=== PATIENT | female | born 2000 | race Hispanic/Latino ===

== ENCOUNTER 2020-08-26 07:36 | Emergency (ER) | payer BC ==
[2020-08-26 08:12] LABS: Absolute Lymphocytes (CBC) 1.3 K/uL (0.7-4.9); Basophils % 0.4 % (0-1.3); Hematocrit 43.6 % (36.0-45.0); Lymphocytes % 14.1 % (15.3-44.8); MPV 8.8 fL (7.6-11.3); RBC Red Blood Cell Count 5.26 M/uL (3.86-4.86)
[2020-08-26] MEDS ORDERED: ONDANSETRON 4 MG/2 ML VIAL ONE ×2 (08:12→09:03)
[2020-08-26] MEDS ORDERED: NA CHLORIDE 0.9% 1,000 ML ONE (08:13)
[2020-08-26] MEDS ORDERED: FAMOTIDINE 20 MG/2 ML VIAL IV ONE (08:13)
[2020-08-26 08:21] LABS: Albumin 4.7 g/dL (3.4-5.0); Bilirubin Direct 0.2 mg/dL (0-0.2); Bilirubin Total 0.7 mg/dL (0.2-1.0); Potassium 3.4 mmol/L (3.5-5.1); Protein, Total 8.6 g/dL (6.4-8.2)
--- NOTE | 2020-08-26 09:33 | ER ---
Nurse's Notes [facility] Name: Vicenta Tomlin Age: 20 yrs Sex: Female : 2000 Arrival Date: 08/26/2020 Time: 07:37 Bed 20 Private MD: Diagnosis: Nausea and vomiting;Alcohol abuse Presentation: 08/26 07:41 Chief complaint: Patient states: drinking heavily last night, has been vomiting and iw having abd pain. Coronavirus screen: At this time, the client does not indicate any symptoms associated with coronavirus-19. Ebola Screen: Patient negative for fever greater than or equal to 101.5 degrees Fahrenheit, and additional compatible Ebola Virus Disease symptoms Patient denies exposure to infectious person. Patient denies travel to an Ebola-affected area in the 21 days before illness onset. No symptoms or risks identified at this time. Initial Sepsis Screen: Does the patient meet any 2 criteria? No. Patient's initial sepsis screen is negative. Does the patient have a suspected source of infection? No. Patient's initial sepsis screen is negative. Risk Assessment: Do you want to hurt yourself or someone else? Patient reports no desire to harm self or others. Onset of symptoms was August 26, 2020. 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 - Social history:: Smoking status: Patient denies any tobacco usage or history of. Screenin:20 Abuse screen: Denies threats or abuse. Denies injuries from another. Nutritional zb screening: No deficits noted. Tuberculosis screening: No symptoms or risk factors identified. Possible symptoms: None Risk factors: None. Fall Risk None identified. No fall in past 12 months (0 pts). No secondary diagnosis (0 pts). IV access (20 points). Ambulatory Aid- None/Bed Rest/Nurse Assist (0 pts). Gait- Normal/Bed Rest/Wheelchair (0 pts) Mental Status- Oriented to own ability (0 pts). Total Espinoza Fall Scale indicates No Risk (0-24 pts). Assessment: 08:09 General: Appears comfortable, well groomed, Behavior is calm, cooperative, appropriate zb for age, anxious, Denies fever, fatigue, chills. General: pt states she was drinking last night everclear and gatorade and started to experience severe nausea and vomiting around 3 AM. she called poison control which suggested she come to the ED. . Pain: Complains of pain in abdomen Pain began 3 hours ago. Neuro: Level of Consciousness is awake, alert, obeys commands, Oriented to person, place, time, situation. Cardiovascular: No deficits noted. Capillary refill < 3 seconds in bilateral fingers. Respiratory: Airway is patent. GI: Abdomen is flat, Reports cramping, nausea, vomiting. : No signs and/or symptoms were reported regarding the genitourinary system. EENT: No deficits noted. No signs and/or symptoms were reported regarding the EENT system. Derm: Skin is intact, is healthy with good turgor. Musculoskeletal: No deficits noted. No signs and/or symptoms reported regarding the musculoskeletal system. 09:00 Reassessment: Patient appears in no apparent distress at this time. Patient and/or zb family updated on plan of care and expected duration. Pain level reassessed. Patient is alert, oriented x 3, equal unlabored respirations, skin warm/dry/pink. pt c/o of nausea. Patient denies pain at this time. Vital Signs: 07:41 BP 133 / 73; Pulse 108; Resp 18 S; Temp 97.7; Pulse Ox 100% on R/A; Weight 74.84 kg; iw Height 5 ft. 6 in. (167.64 cm); Pain 8/10; 07:41 BP 133 / 73; iw 09:10 BP 115 / 77; Pulse 100; Resp 18; Pulse Ox 100% on R/A; zb 07:41 Body Mass Index 26.63 (74.84 kg, 167.64 cm) iw ED Course: 07:37 Patient arrived in ED. as 07:42 Triage completed. iw 07:42 Arm band placed on. iw 07:44 Solomon Arvizu MD is Attending Physician. kdr 07:54 Snehal Goodwin RN is Primary Nurse. ph 08:00 Initial lab(s) drawn, by me, sent to lab. Inserted saline lock: 20 gauge in right iw antecubital area, using aseptic technique. 08:20 No provider procedures requiring assistance completed. zb 08:21 Patient has correct armband on for positive identification. Placed in gown. Bed in low zb position. Call light in reach. Side rails up X 1. Adult w/ patient. Door closed. Noise minimized. Warm blanket given. Head of bed elevated. 10:13 IV discontinued, intact, bleeding controlled, No redness/swelling at site. Pressure zb dressing applied. Administered Medications: 08:19 Drug: NS 0.9% 1000 ml Route: IV; Rate: 1 bolus; Site: right antecubital; zb 08:55 Follow up: Response: No adverse reaction; IV Intake: 1000ml zb 09:30 Follow up: Response: No adverse reaction; IV Intake: 1000ml zb 08:19 Drug: Zofran (Ondansetron) 4 mg Route: IVP; Site: right antecubital; zb 08:55 Follow up: Response: No adverse reaction zb 08:19 Drug: Pepcid 20 mg Route: IVP; Site: right antecubital; zb 08:54 Follow up: Response: No adverse reaction; Pain is decreased zb 08:54 Drug: Zofran (Ondansetron) 4 mg Route: IVP; Site: right antecubital; zb 09:45 Follow up: Response: No adverse reaction zb Intake: 08:55 IV: 1000ml; Total: 1000ml. zb 09:30 IV: 1000ml; Total: 2000ml. zb Outcome: 09:31 Discharge ordered by . kdr 10:12 Discharged to home ambulatory, with significant other. zb 10:12 Condition: good 10:12 Discharge instructions given to patient, significant other, Instructed on discharge instructions, follow up and referral plans. medication usage, Demonstrated understanding of instructions, follow-up care, medications, Prescriptions given X 1. 10:13 Patient left the ED. zb Signatures: Solomon Arvizu MD MD kdr Martinez, Amelia as Williams, Irene, RN RN iw Snehal Goodwin RN RN ph Brown, Zipporah, RN RN zb Corrections: (The following items were deleted from the chart) 07:43 07:41 BP 13 / ???; iw iw
--- NOTE | 2020-08-26 09:33 | EDPHYS ---
Physician Documentation [facility] Name: Vicenta Tomlin Age: 20 yrs Sex: Female : 2000 Arrival Date: 08/26/2020 Time: 07:37 Bed 20 Private MD: ED Physician Solomon Arvizu HPI: 08/26 08:02 This 20 yrs old Female presents to ER via Ambulatory with complaints of kdr Vomiting, Abdominal Pain. 08:02 The patient presents to the emergency department with nausea, vomiting, Onset: The kdr symptoms/episode began/occurred suddenly, this morning, at 03:00. Possible causes: Drinking Everclear and Gatoraide last night until about 2:00 AM and then she started to vomit at about 3:00 AM. The symptoms are aggravated by nothing. The symptoms are alleviated by nothing. Associated signs and symptoms: Pertinent positives: abdominal pain, vomiting. Severity of symptoms: At their worst the symptoms were mild just prior to arrival, in the emergency department the symptoms are unchanged. The patient has not experienced similar symptoms in the past. The patient has not recently seen a physician. 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 - Social history:: Smoking status: Patient denies any tobacco usage or history of. ROS: 08:02 Constitutional: Negative for fever, chills, and weight loss, Eyes: Negative for injury, kdr pain, redness, and discharge, Neck: Negative for injury, pain, and swelling, Cardiovascular: Negative for chest pain, palpitations, and edema, Respiratory: Negative for shortness of breath, cough, wheezing, and pleuritic chest pain, Back: Negative for injury and pain, : Negative for injury, bleeding, discharge, and swelling, MS/Extremity: Negative for injury and deformity, Skin: Negative for injury, rash, and discoloration, Neuro: Negative for headache, weakness, numbness, tingling, and seizure activity. Psych: Negative for depression, anxiety, suicide ideation, homicidal ideation, and hallucinations, Allergy/Immunology: Negative for hives, rash, and allergies, Endocrine: Negative for neck swelling, polydipsia, polyuria, polyphagia, and marked weight changes, Hematologic/Lymphatic: Negative for swollen nodes, abnormal bleeding, and unusual bruising. 08:02 Abdomen/GI: Positive for abdominal pain, nausea and vomiting, Negative for diarrhea, constipation, abdominal distension, anorexia, dysphagia, hematemesis, black/tarry stool, rectal pain, rectal bleeding, bowel incontinence. Exam: 08:02 Constitutional: This is a well developed, well nourished patient who is awake, alert, kdr and in no acute distress. Head/Face: Normocephalic, atraumatic. Eyes: Pupils equal round and reactive to light, extra-ocular motions intact. Lids and lashes normal. Conjunctiva and sclera are non-icteric and not injected. Cornea within normal limits. Periorbital areas with no swelling, redness, or edema. Neck: Trachea midline, no thyromegaly or masses palpated, and no cervical lymphadenopathy. Supple, full range of motion without nuchal rigidity, or vertebral point tenderness. No Meningismus. Chest/axilla: Normal chest wall appearance and motion. Nontender with no deformity. No lesions are appreciated. Cardiovascular: Regular rate and rhythm with a normal S1 and S2. No gallops, murmurs, or rubs. Normal PMI, no JVD. No pulse deficits. Respiratory: Lungs have equal breath sounds bilaterally, clear to auscultation and percussion. No rales, rhonchi or wheezes noted. No increased work of breathing, no retractions or nasal flaring. Back: No spinal tenderness. No costovertebral tenderness. Full range of motion. Skin: Warm, dry with normal turgor. Normal color with no rashes, no lesions, and no evidence of cellulitis. MS/ Extremity: Pulses equal, no cyanosis. Neurovascular intact. Full, normal range of motion. Neuro: Awake and alert, GCS 15, oriented to person, place, time, and situation. Cranial nerves II-XII grossly intact. Motor strength 5/5 in all extremities. Sensory grossly intact. Cerebellar exam normal. Normal gait. Psych: Awake, alert, with orientation to person, place and time. Behavior, mood, and affect are within normal limits. 08:02 Abdomen/GI: Inspection: abdomen appears normal, Bowel sounds: normal, Palpation: soft, mild abdominal tenderness, in the epigastric area, right upper quadrant and left upper quadrant. Vital Signs: 07:41 BP 133 / 73; Pulse 108; Resp 18 S; Temp 97.7; Pulse Ox 100% on R/A; Weight 74.84 kg; iw Height 5 ft. 6 in. (167.64 cm); Pain 8/10; 07:41 BP 133 / 73; iw 09:10 BP 115 / 77; Pulse 100; Resp 18; Pulse Ox 100% on R/A; zb 07:41 Body Mass Index 26.63 (74.84 kg, 167.64 cm) iw MDM: 08:02 Data reviewed: vital signs, nurses notes, lab test result(s). Counseling: I had a kdr detailed discussion with the patient and/or guardian regarding: the historical points, exam findings, and any diagnostic results supporting the discharge/admit diagnosis, lab results, radiology results. 09:31 Patient medically screened. kdr 08/26 07:45 Order name: Basic Metabolic Panel; Complete Time: 08:51 kdr 08/26 07:45 Order name: CBC with Diff; Complete Time: 08:51 kdr 08/26 07:45 Order name: Hepatic Function; Complete Time: 08:51 kdr 08/26 07:45 Order name: Lipase; Complete Time: 08:51 kdr 08/26 08:09 Order name: ETOH Level; Complete Time: 08:51 kdr 08/26 07:45 Order name: IV Saline Lock; Complete Time: 07:56 kdr 08/26 07:45 Order name: Labs collected and sent; Complete Time: 07:56 kdr Administered Medications: 08:19 Drug: NS 0.9% 1000 ml Route: IV; Rate: 1 bolus; Site: right antecubital; zb 08:55 Follow up: Response: No adverse reaction; IV Intake: 1000ml zb 09:30 Follow up: Response: No adverse reaction; IV Intake: 1000ml zb 08:19 Drug: Zofran (Ondansetron) 4 mg Route: IVP; Site: right antecubital; zb 08:55 Follow up: Response: No adverse reaction zb 08:19 Drug: Pepcid 20 mg Route: IVP; Site: right antecubital; zb 08:54 Follow up: Response: No adverse reaction; Pain is decreased zb 08:54 Drug: Zofran (Ondansetron) 4 mg Route: IVP; Site: right antecubital; zb 09:45 Follow up: Response: No adverse reaction zb Disposition: 08/26/20 09:31 Discharged to Home. Impression: Nausea and vomiting, Alcohol abuse. - Condition is Stable. - Discharge Instructions: Nausea and Vomiting, Adult, [id number]. - Prescriptions for promethazine 25 mg Oral Tablet - take 1 tablet by ORAL route every 6 hours As needed; 20 tablet. - Medication Reconciliation Form, Thank You Letter form. - Follow up: Private Physician; When: 2 - 3 days; Reason: If symptoms return, Further diagnostic work-up, Recheck today's complaints, Continuance of care, Re-evaluation by your physician. - Problem is new. - Symptoms have improved. Signatures: Dispatcher [employer] EDMS Solomon Arvizu MD MD kdr Ana Cristina Garrido RN RN iw Garima Strange RN RN zb Corrections: (The following items were deleted from the chart) 10:13 09:31 08/26/2020 09:31 Discharged to Home. Impression: Nausea and vomiting; Alcohol zb abuse. Condition is Stable. Forms are Medication Reconciliation Form, Thank You Letter, Antibiotic Education, Prescription Opioid Use. Follow up: Private Physician; When: 2 - 3 days; Reason: If symptoms return, Further diagnostic work-up, Recheck today's complaints, Continuance of care, Re-evaluation by your physician. Problem is new. Symptoms have improved. kdr
[2020-08-26 10:25] VITALS: TEMP 97.7; O2SAT 100
[2020-08-26 10:26] VITALS: BP 115/77
== END 2020-08-26 10:13 | disposition home or self-care (01) ==
LOC: ER 07:36
DX: F10.10 Alcohol abuse, uncomplicated (principal)
CPT/HCPCS: 85025; 80048; 36415; 80320; 80076; 83690; 96375; 96374; 99284; J7030; J2405 ×2

== ENCOUNTER 2021-05-19 15:23 | Emergency (ER) | payer OTHER ==
--- OUTSIDE RECORDS SUMMARY | 2021-05-19 15:25 | XMS REPORT | Continuity of Care Document ---
:2000 Author Organization [facility] t Address [address] [place] [address] Care Team Providers Name Role Phone Debi Cabral Attending Clinician Faculty, Rmchp Mfm Attending Clinician Unavailable Problems This patient has no known problems. Allergies, Adverse Reactions, Alerts This patient has no known allergies or adverse reactions. Medications This patient has no known medications. Procedures This patient has no known procedures. Encounters Start End Encounter Admission Attending Care Care Encounter Source Date/Time Date/Time Type Type Clinicians Facility Department ID 2021-05-08 2021-05-08 Routine Te[facility] [id number] 13:22:34 14:01:37 Kristal C MEDICAL SERVICES MANAGER [id number] Visit [facility]IONAL [id number] MATERNAL [id number] & CHILD 107 [facility] 2021-05-08 2021-05-08 Refill ROD Lo [id number] 00:00:00 00:00:00 Kristal C MEDICAL SERVICES MANAGER [id number] REGIONAL [id number] MATERNAL [id number] & CHILD 107 [facility] 2021-04-24 2021-04-24 Routine Teresita [facility] [id number] 12:46:09 13:31:30 Kristal C MEDICAL SERVICES MANAGER [id number] Visit REGIONAL [id number] MATERNAL [id number] & CHILD 107 [facility] 2021-04-22 2021-04-22 Routine [facility] [id number] 14:17:33 15:26:46 Ang Rmchp MEDICAL SERVICES MANAGER [id number] Visit [facility] [id number] MATERNAL [id number] & CHILD 107 [facility] 2021-04-15 2021-04-15 Telephone Teresita [facility] [id number] 00:00:00 00:00:00 Kristal C MEDICAL SERVICES MANAGER [id number] REGIONAL [id number] MATERNAL [id number] & CHILD 107 [facility] Results This patient has no known results.
--- NOTE | 2021-05-21 16:36 | EDPHYS ---
Physician Documentation [facility] Name: Vicenta Tomlin Age: 20 yrs Sex: Female : 2000 Arrival Date: 05/19/2021 Time: 15:25 Bed Waiting Private MD: Nikolay Rutherford ED Physician Montse Pulido HPI: 05/19 16:34 This 20 yrs old Female presents to ER via Ambulatory with complaints of Finger kb swelling/ring stuck. 16:34 Patient states she has been swelling lately due to (patient is 39 weeks kb ). States woke up with swelling to her hands and is unable to remove ring from right ring finger. States she tried lotions soaps oils with no success. Onset: The symptoms/episode began/occurred this morning. Severity of symptoms: At their worst the symptoms were moderate in the emergency department the symptoms are unchanged. The patient has not experienced similar symptoms in the past. The patient has not recently seen a physician. Historical: - Allergies: 15:40 No Known Allergies; ss - Immunization history:: Adult Immunizations up to date. - Social history:: Smoking status: Patient denies any tobacco usage or history of. ROS: 16:34 Constitutional: Negative for fever, chills, and weight loss. kb 16:34 Skin: Positive for ring stuck on finger. 16:34 All other systems are negative. Exam: 16:32 Constitutional: This is a well developed, well nourished patient who is awake, alert, kb and in no acute distress. Head/Face: Normocephalic, atraumatic. ENT: Moist Mucous membranes Respiratory: Respirations even and unlabored. No increased work of breathing, no retractions or nasal flaring. MS/ Extremity: Pulses equal, no cyanosis. Neurovascular intact. Full, normal range of motion. Neuro: Awake and alert, GCS 15, oriented to person, place, time, and situation. Moves all extremities. Normal gait. Psych: Awake, alert, with orientation to person, place and time. Behavior, mood, and affect are within normal limits. 16:32 Skin: ring stuck on right 4th digit due to swelling. Vital Signs: 15:38 Resp 16; Weight 90.72 kg; Height 5 ft. 5 in. (165.10 cm); Pain 0/10; ss 15:41 BP 110 / 71; Pulse 91; Temp 98.1(TE); Pulse Ox 98% on R/A; ss 15:38 Body Mass Index 33.28 (90.72 kg, 165.10 cm) ss Procedures: 16:32 Ring removed from right 4th digit with ring cutter. Pt tolerated well. kb MDM: 15:51 Patient medically screened. kb 16:32 Data reviewed: vital signs, nurses notes. Data interpreted: Pulse oximetry: on room air kb is 98 %. Interpretation: normal. Counseling: I had a detailed discussion with the patient and/or guardian regarding: the historical points, exam findings, and any diagnostic results supporting the discharge/admit diagnosis, the need for outpatient follow up, a family practitioner, to return to the emergency department if symptoms worsen or persist or if there are any questions or concerns that arise at home. Administered Medications: No medications were administered Disposition: 17:14 Co-signature as Attending Physician, Montse Pulido MD. ma2 Disposition Summary: 05/19/21 15:53 Discharge Ordered Location: Home kb Condition: Stable kb Diagnosis - Ring or other jewelry causing external constriction, initial encounter kb Forms: - Medication Reconciliation Form kb - Thank You Letter kb - Antibiotic Education kb - Prescription Opioid Use kb Signatures: Jess Ewing FNP-C FNP-Ckb Smirch, Shelby, LOS RN Montse Shipley MD MD ma2
--- NOTE | 2021-05-21 16:36 | ER ---
Nurse's Notes [facility] Name: Vicenta Tomlin Age: 20 yrs Sex: Female : 2000 Arrival Date: 05/19/2021 Time: 15:25 Bed Waiting Private MD: Nikolay Rutherford Diagnosis: Ring or other jewelry causing external constriction, initial encounter Presentation: 05/19 15:38 Chief complaint: Patient states: Unable to get ring off of finger since this morning. ss Pt reports she is 8 months and believes it's because she is . Coronavirus screen: Client denies travel out of the [place] in the last 14 days. Ebola Screen: Patient denies exposure to infectious person. Patient denies travel to an Ebola-affected area in the 21 days before illness onset. Initial Sepsis Screen: Does the patient meet any 2 criteria? No. Patient's initial sepsis screen is negative. Does the patient have a suspected source of infection? No. Patient's initial sepsis screen is negative. Risk Assessment: Do you want to hurt yourself or someone else? Patient reports no desire to harm self or others. Onset of symptoms was May 19, 2021. 15:38 Method Of Arrival: Ambulatory ss 15:38 Acuity: HUGO 5 ss Historical: - Allergies: 15:40 No Known Allergies; ss - Immunization history:: Adult Immunizations up to date. - Social history:: Smoking status: Patient denies any tobacco usage or history of. Screenin:40 Abuse screen: Denies threats or abuse. Denies injuries from another. Nutritional ss screening: No deficits noted. Tuberculosis screening: Never had TB. Fall Risk None identified. Assessment: 15:41 General: Appears in no apparent distress. comfortable, Behavior is calm, cooperative. ss Pain: Denies pain. Neuro: Level of Consciousness is awake, alert, obeys commands, Oriented to person, place, time, situation. Cardiovascular: Capillary refill < 3 seconds is brisk in bilateral fingers. Respiratory: Airway is patent Respiratory effort is even, unlabored, Respiratory pattern is regular, symmetrical. Derm: Skin is intact, is healthy with good turgor, Skin is dry, Skin is pink, warm \T\ dry. normal. Musculoskeletal: Swelling present in palmar aspect of proximal phalanx of left ring finger. Vital Signs: 15:38 Resp 16; Weight 90.72 kg; Height 5 ft. 5 in. (165.10 cm); Pain 0/10; ss 15:41 BP 110 / 71; Pulse 91; Temp 98.1(TE); Pulse Ox 98% on R/A; ss 15:38 Body Mass Index 33.28 (90.72 kg, 165.10 cm) ED Course: 15:25 Patient arrived in ED. am2 15:25 Nikolay Rutherford MD is Private Physician. am2 15:40 Triage completed. ss 15:40 Arm band placed on right wrist. ss 15:40 Patient has correct armband on for positive identification. ss 15:51 Jess Ewing FNP-C [facility]. kb 15:51 Montse Pulido MD is Attending Physician. kb 16:14 No provider procedures requiring assistance completed. Patient did not have IV access ss during this emergency room visit. Removal of Removed ring from left ring finger. Removed ring with ring cutter Patient tolerated well. Administered Medications: No medications were administered Outcome: 15:53 Discharge ordered by . kb 16:14 Discharged to home ambulatory. ss 16:14 Condition: good 16:14 Discharge instructions given to patient, Instructed on discharge instructions, follow up and referral plans. Demonstrated understanding of instructions, follow-up care. 16:15 Patient left the ED. ss Signatures: Jess Ewing FNP-C FNP-Ckb Smirch, Shelby, LOS RN Haleigh Simmons am2
[2021-05-21 18:32] VITALS: BP 110/71; TEMP 98.1; O2SAT 98
== END 2021-05-19 16:15 | disposition home or self-care (01) ==
LOC: ER 15:23
DX: O26.893 Other specified pregnancy related conditions, third trimester (principal); W49.04XA Ring or other jewelry causing external constriction, initial encounter; Z3A.39 39 weeks gestation of pregnancy
CPT/HCPCS: 99283

== ENCOUNTER 2023-04-30 11:29 | Emergency (ER) | payer OTHER ==
--- OUTSIDE RECORDS SUMMARY | 2023-04-30 11:33 | XMS REPORT | Continuity of Care Document ---
:2000 Author Organization [facility] t Address [address] [place] [address] Care Team Providers Name Role Phone ELISA MONTEZ Primary Care Physician Unavailable ROWENA Attending Clinician Unavailable JONNIE PERKINS Attending Clinician Unavailable Teresita WHPKristal Attending Clinician [phone] KRISTAL LO Attending Clinician Unavailable Ashanti Matthews MD Attending Clinician Patria Matthews MD Attending Clinician Alix Rahman MD Attending Clinician Lab, [facility] Attending Clinician Unavailable Vaishali PAYNE, Elisa Donato Attending Clinician Ultrasound, Ang-Mfm Attending Clinician Unavailable Aiden Taveras MD Attending Clinician Faculty, Messi Mathew [facility] Attending Clinician Unavailable Colton JEFFERSON, Armando Simms Attending Clinician Elvira Montes MD Attending Clinician Doctor Unassigned, [place] Attending Clinician Unavailable Rob Bernard MD Attending Clinician 1, [facility] Us Room Attending Clinician Unavailable Lab/Pedi, [facility] Attending Clinician Unavailable Lab, [facility] Attending Clinician Unavailable ROWENA Admitting Clinician Unavailable Ashanti Matthews MD Admitting Clinician Payers Payer Name Policy Type Policy Number Effective Date Expiration Date Breanne hogan [facility] [id number] 2021 00:00:00 [employer] [id number] 2020 OUT OF NETWORK 00:00:00 [place] [id number] 2018 00:00:00 MEDICAID [facility] [id number] 2021 00:00:00 Problems Condition Condition Condition Status Onset Resolution Last Treating Co mments Source Name Details Category Date Date Treatment Clinician Date Routine Routine Disease Active Univers 9-27 it y of follow-up follow-up 00:00: [address] Branch Obesity Obesity Disease Active Univers (BMI (BMI 9-03 ity of 30-39.9) 30-39.9) 00:00: [address] Pruritus Pruritus Disease Active Unive rs 6-04 ity of 00:00: [address] Lab test Lab test Disease Active Unive rs positive positive 1-15 ity of for for 00:00: [place] detection detection 00 Medi [place] of of Branch COVID-19 COVID-19 virus virus Hypothyroi Hypothyroi Disease Active Overview : Univers d in d in 1-14 Formattin ity of , , 00:00: g of this [place] antepartum antepartum 00 note Me dical might be Branch different from the original. Reports was dx and started on meds, labs wnl Allergies, Adverse Reactions, Alerts Allergy Allergy Status Severity Reaction(s) Onset Inactive Treating Comm ents Source Name Type Date Date Clinician NO KNOWN Drug Active Univers ALLERGIE Class ity of S [facility] Social History Social Habit Start Date Stop Date Quantity Comments Source History SDOH University o f Alcohol Comment [facility] ical Branch Exposure to Not sure [facility] SARS-CoV-2 [facility] (event) Branch Alcohol intake 2021-06-30 2021-06-30 Lifetime University of 00:00:00 00:00:00 non-drinker [place] [facility] (finding) Branch Tobacco use and 2020-11-08 2020-11-08 Never used Universit y of exposure 00:00:00 00:00:00 [place] [facility] Branch History SDOH 2020-11-08 2020-11-08 1 University o f Alcohol Frequency 00:00:00 00:00:00 [place] [facility] edical Branch History SDOH 2020-11-08 2020-11-08 99 University o f Alcohol Std 00:00:00 00:00:00 [place] [facility] Drinks Branch History SDOH 2020-11-08 2020-11-08 1 University o f Alcohol Binge 00:00:00 00:00:00 [place] [facility] Branch Sex Assigned At [birth year] Universit y of 00:00:00 00:00:00 [facility] Branch Smoking Status Start Date Stop Date Source Never smoker [facility] Branch Medications Ordered Filled Start Stop Current Ordering Indication Dosage Frequency Signature Comments Components Source Medication Medication Date Date Medication? Clinician (SIG) Name Name metroNIDAZO Yes [id number] 500mg Take 1 Univers LE 500 mg 9- tablet by ity o f tablet 00:00: mouth 2 [place] 00 (two) Medical times Branch daily. levothyroxi Yes [id number] 50ug Take 1 Univers ne 50 mcg 9- tablet by ity o f tablet 00:00: mouth [place] 00 every Medical morning. Branch Yes Take by Univer s vit/iron -05 mouth 2 ity of fum/folic 18:02: (two) [place] ac 06 times Medical ( 1 daily. Branch + 1 ORAL) docusate Yes [id number] 240mg Take 1 U nivers calcium 240 9-05 capsule by it y of mg capsule 00:00: mouth once [place] 00 daily as Medical needed for Branch Constipati on. ibuprofen Yes [id number] 600mg Take 1 Univers 600 mg 9-05 tablet by ity of tablet 00:00: mouth [place] 00 every 6 Medical (six) Branch hours as needed for Pain (scale 4-6). acetaminoph 2021- No [id number] 650mg Take 2 Univers en 325 mg 9-05 09-06 tablets by ity of tablet 00:00: 04:59 mouth [place] 00 :00 every 6 Medical (six) Branch hours as needed for Pain (scale 1-3). LEVOTHYROXI Yes [id number] TAKE 1 Univers NE 25 mcg 6-08 TABLET BY ity o f tablet 00:00: MOUTH [place] 00 EVERY DAY Medical IN THE Branch MORNING Immunizations Ordered Immunization Filled Immunization Date Status Commen ts Source Name Name TDAP 2021-04-12 Completed [facility] 00:00:00 [facility] Meningococcal 2019-05-09 Completed [facility] 00:00:00 [facility] [place] (groups A, C, Y and Branc h W-135) conjugate vaccine (MCV4P) Procedures This patient has no known procedures. Encounters Start End Encounter Admission Attending Care Care Encounter Source Date/Time Date/Time Type Type Clinicians Facility Department ID 2021-08-26 Outpatient [facility] [id number] Univers 20:10:20 [facility] 2021-11-21 2021-11-[address] [facility] [id number] [place] 11:50:00 11:50:00 [facility] 2021-08-12 2021-08-12 [facility] [id number] Univers 09:45:00 09:45:00 JONNIE salvador [facility] 2021-07-24 2021-07-24 Telephone [facility] 1.2.840.114 [id number] Univers 00:00:00 00:00:00 Kristal C LUMBER RACKER 350.1.13.10 ity of REGIONAL 4.2.7.2.686 He as MATERNAL [phone] Med ical & CHILD [address] [place] [address] 2021-07-22 2021-07-22 Routine [facility] 1.2.028.813 [id number] Univers 10:38:18 11:08:47 Kristal C LUM[place] RACKER 350.1.13.10 ity of Visit [facility] 4.2.7.2.686 He as MATERNAL [id number] Med ical & CHILD [address] [place] [address] 2021-07-22 2021-07-22 [facility] [id number] Univers 10:30:00 10:30:00 KRISTAL ity o f [facility] 2021-06-28 2021-06-30 Hospital ENA Matthews 1.2.840.[id number] [facility] 07:32:00 18:02:00 Encounter Ashanti ARMENDARIZ 350.1.13.10 ity of HOSPITAL 4.2.7.2.686 He as [id number] [facility] [address] [place] 2021-06-28 2021-06-29 Anesthesia WiliPatria rankin ENA 1.2.[id number] [facility] 19:42:00 12:45:00 Event Alix Rahman 350.1.13.10 ity of [facility] 4.2.7.2.686 He as [id number] [facility] [address] [place] 2021-06-25 2021-06-25 Routine [facility] 1.2.777.632 [id number] Univers 15:51:01 16:06:01 Kristal C LUM[place] RACKER 350.1.13.10 ity of Visit [facility] 4.2.7.2.686 He as MATERNAL [id number] Med ical & CHILD [address] [place] [address] 2021-06-25 2021-06-25 Outpatient R [facility] [id number] [facility] 15:45:00 15:45:00 [address] o [address] [facility] 2021-06-21 2021-06-21 Telephone [facility] 1.2.840.114 [id number] Univers 00:00:00 00:00:00 Kristal C LUM[place] RACKER 350.1.13.10 ity of [facility] 4.2.7.2.686 He as MATERNAL [phone] Med ical & CHILD [address] [place] [address] 2021-06-19 2021-06-19 Routine [facility] 1.2.354.505 [id number] Univers 16:05:42 16:28:41 Kristal C LUM[place] RACKER 350.1.13.10 ity of Visit REGIONAL 4.2.7.2.686 He as MATERNAL [id number] Med ical & CHILD [address] [place] [address] 2021-06-19 2021-06-19 Outpatient R TERESITA, [facility] [id number] Univers 16:00:00 16:00:[address] [facility] 2021-06-12 2021-06-12 Outpatient R TERESITA, [facility] [id number] Univers 14:00:00 14:00:[address] [facility] 2021-06-12 2021-06-12 Routine [facility] 1.2.341.087 [id number] Univers 08:41:17 08:56:17 Kristal C [place]UM[place] RACKER 350.1.13.10 ity of Visit REGIONAL 4.2.7.2.686 He as MATERNAL [id number] [facility] ical & CHILD [address] [place] [address] 2021-06-12 2021-06-12 Outpatient R TERESITA, [facility] [id number] Univers 08:30:00 08:30:00 KRISTAL marcial [facility] 2021-06-10 2021-06-10 Nursing Informatics Clinical Analyst Lab, [employer] 1.2.840. 114 [id number] Univers 14:59:28 15:14:28 Visit Kristal Lo [place] 350.1.13. 10 ity of REGIONAL 4.2.7.2.686 He as MATERNAL [id number] [facility] & [address] 2021-06-10 2021-06-10 Outpatient R TERESITA, [facility] [id number] Univers 13:00:00 13:00:00 KRISTAL marcial [facility] 2021-06-06 2021-06-06 [facility]phone [facility] 1.2.840.114 [id number] Univers 00:00:00 00:00:00 Kristal C LUMBER RACKER 350.1.13.10 ity of REGIONAL 4.2.7.2.686 He as MATERNAL [id number] [facility] CHILD [address] [place] [address] 2021-06-06 2021-06-06 Telephone [facility] 1.2.518.108 [id number] Univers 00:00:00 00:00:00 Elisa A [place]ER 350.1.13.10 ity of REGIONAL 4.2.7.2.686 He as MATERNAL [id number] [facility] ical & CHILD [address] [facility] 2021-06-06 2021-06-06 Telephone [facility] 1.2.840.114 [id number] Univers 00:00:00 00:00:00 Kristal C LUMBER RACKER 350.1.13.10 ity of REGIONAL 4.2.7.2.686 He as MATERNAL [id number] [facility] & CHILD [address] [place] [address] 2021-06-05 2021-06-05 Routine [facility] 1.2.832.781 [id number] Univers 08:39:29 09:23:30 Kristal C LUMBER RACKER 350.1.13.10 ity of Visit REGIONAL 4.2.7.2.686 He as MATERNAL [id number] [facility] & CHILD [address] [place] [address] 2021-06-05 2021-06-05 Outpatient R [facility] [id number] Univers 08:30:00 08:30:[address] o f [facility] 2021-06-05 2021-06-05 Telephone [facility] 1.2.840.114 [id number] Univers 00:00:00 00:00:00 Kristal C LUMBER RACKER 350.1.13.10 ity of REGIONAL 4.2.7.2.686 He as MATERNAL [id number] [facility] & CHILD [address] [place] [address] 2021-05-30 2021-05-30 Abstract [facility] 1.2.840.114 [id number] Univers 00:00:00 00:00:00 Kristal C LUMBER RACKER 350.1.13.10 ity of REGIONAL 4.2.7.2.686 He as MATERNAL [id number] [facility] & CHILD [address] [place] [address] 2021-05-27 2021-05-27 Nursing Informatics Clinical Analyst Ultrasound, [facility] 1.2 .840.114 [id number] Univers 13:51:09 14:21:09 Visit Aiden Taveras [place] 350.1.13.10 ity of REGIONAL 4.2.7.2.686 He as MATERNAL [id number] [facility] & CHILD [address] [place] [address] 2021-05-27 2021-05-27 Outpatient P [facility] [id number] Univers 13:45:00 13:45:[address] [facility] 2021-05-22 2021-05-22 Routine Akinsipe, [facility] 1.2.925.834 [id number] Univers 13:20:55 13:50:57 Kristal C LUMBER RACKER 350.1.13.10 ity of Visit REGIONAL 4.2.7.2.686 He as MATERNAL [id number] [facility] & [address] 2021-05-22 2021-05-22 Outpatient R AKINSIPE, [facility] [id number] Univers 13:00:00 13:00:[address] o [address] [facility] 2021-05-08 2021-05-08 Routine Akinsipe, [facility] 1.2.588.305 [id number] 13:22:34 14:01:37 Kristal C LUMBER RACKER 350.1.13.10 Visit REGIONAL 4.2.7.2.686 MATERNAL [id number] & [address] 2021-05-08 2021-05-08 Routine Akinsipe, [facility] 1.2.356.725 [id number] Univers 13:22:34 14:01:37 Kristal C LUMBER RACKER 350.1.13.10 ity of Visit REGIONAL 4.2.7.2.686 He as MATERNAL [id number] [facility] & CHILD [address] [place] [address] 2021-05-08 2021-05-08 Outpatient R AKINSIPE, [facility] [id number] Univers 13:15:00 13:15:[address] o [address] [facility] 2021-05-08 2021-05-08 Refill Akinsipe, [facility] 1.2.490.858 [id number] Univers 00:00:00 00:00:00 Kristal C LUMBER RACKER 350.1.13.10 ity of REGIONAL 4.2.7.2.686 He as MATERNAL [id number] [facility] & CHILD [address] [place] [address] 2021-05-08 2021-05-08 Refill Teresita, [facility] 1.2.462.831 [id number] 00:00:00 00:00:00 Kristal C LUMBER RACKER 350.1.13.10 REGIONAL 4.2.7.2.686 MATERNAL [id number] & CHILD [address] [place] [address] 2021-04-24 2021-04-24 Routine [facility], [facility] 1.2.336.721 [id number] Univers 12:46:09 13:31:30 Kristal C LUMBER RACKER 350.1.13.10 ity of Visit REGIONAL 4.2.7.2.686 He as MATERNAL [id number] [address] 2021-04-24 2021-04-24 Routine [facility] 1.2.261.018 [id number] 12:46:09 13:31:30 Kristal C LUMBER RACKER 350.1.13.10 Visit REGIONAL 4.2.7.2.686 MATERNAL [id number] [address] 2021-04-24 2021-04-24 Outpatient R TERESITA [facility] [id number] Univers 12:45:00 12:45:[address] o [address] [facility] 2021-04-22 2021-04-22 Routine Faculty, Messi Mathew [facility] 1.[id number] [facility] 14:17:33 15:26:46 Matthews, Ashanti LUM[employer] RACKER 350.1.13.10 ity of Visit REGIONAL 4.2.7.2.686 He as MATERNAL [id number] [facility] CHILD [address] [place] [address] 2021-04-22 2021-04-22 Routine Faculty, [facility] 1.2.840.114 [id number] 14:17:33 15:26:46 [facility]i [facility] 350.1.13.10 Visit [facility] 4.2.7.2.686 MATERNAL [id number] & CHILD [address] [place] [address] 2021-04-22 2021-04-22 Outpatient R [facility] [id number] Univers 14:15:00 14:15:[address] [facility] 2021-04-15 2021-04-15 Telephone [facility] 1.2.840.114 [id number] Univers 00:00:00 00:00:00 Kristal C LUMBER RACKER 350.1.13.10 ity of REGIONAL 4.2.7.2.686 He as MATERNAL [id number] [facility] ical & CHILD [address] [place] [address] 2021-04-15 2021-04-15 Telephone [facility] 1.2.840.114 [id number] 00:00:00 00:00:00 Kristal C LUMBER RACKER 350.1.13.10 REGIONAL 4.2.7.2.686 MATERNAL [id number] & CHILD [address] [place] [address] 2021-04-12 2021-04-12 Routine [facility] 1.2.299.919 [id number] Univers 08:00:44 09:23:11 Kristal C LUMBER RACKER 350.1.13.10 ity of Visit REGIONAL 4.2.7.2.686 He as MATERNAL [id number] [facility] & [address] 2021-04-12 2021-04-12 Outpatient R [facility] [id number] Univers 08:00:00 08:00:[address] o f [facility] 2021-04-05 2021-04-05 Telephone [facility] 1.2.840.114 [id number] Univers 00:00:00 00:00:00 Kristal C LUMBER RACKER 350.1.13.10 ity of REGIONAL 4.2.7.2.686 He as MATERNAL [id number] [facility] & CHILD [address] [place] [address] 2021-04-05 2021-04-05 Abstract [facility] 1.2.840.114 [id number] Univers 00:00:00 00:00:00 Kristal C LUMBER RACKER 350.1.13.10 ity of REGIONAL 4.2.7.2.686 He as MATERNAL [id number] Med ical & CHILD [address] [facility] 2021-04-03 2021-04-03 Nursing Informatics Clinical Analyst Ultrasound, [facility] 1.2 .840.114 [id number] Univers 09:43:30 10:13:30 Visit Armando Segura L[place]ER 350.1.13.10 ity of Elvira Montes REGIONAL 4.2.7.2.686 [place] MATERNAL [id number] Med ical & CHILD [address] [facility] 2021-04-03 2021-04-03 Outpatient P [facility] [id number] Univers 09:30:00 09:30:[address] [facility] 2021-03-29 2021-03-29 Routine Akinsipe, [facility] 1.2.139.131 [id number] Univers 12:48:56 13:44:56 Kristal C LUMBER RACKER 350.1.13.10 ity of Visit REGIONAL 4.2.7.2.686 He as MATERNAL [id number] Med ical & CHILD [address] [place] [address] 2021-03-29 2021-03-29 Outpatient R AKINROSYPE, [facility] [id number] Univers 12:45:00 12:45:[address] o [address] [facility] 2021-03-29 2021-03-29 [facility]ill [facility] 1.2.639.643 [id number] Univers 00:00:00 00:00:00 Kristal C LUMBER RACKER 350.1.13.10 ity of REGIONAL 4.2.7.2.686 He as MATERNAL [id number] [facility] ical & CHILD [address] [place] [address] 2021-03-21 2021-03-21 Routine Akinsipe, [facility] 1.2.825.728 [id number] Univers 10:18:43 11:15:52 Kristal C LUMBER RACKER 350.1.13.10 ity of Visit REGIONAL 4.2.7.2.686 He as MATERNAL [id number] Med ical & CHILD [address] [place] [address] 2021-03-21 2021-03-21 Outpatient R TERESITA [facility] [id number] Univers 10:15:00 10:15:[address] [facility] 2021-03-21 2021-03-21 Orders Doctor [place] 1.2.840.114 [id number] Univers 00:00:00 00:00:00 Only Unassigned, MARCELLO 350.1.13.10 ity of [place] [facility] 4.2.7.2.686 He as [id number] [address] 2021-03-18 2021-03-18 Telephone [facility] 1.2.840.114 [id number] Univers 00:00:00 00:00:00 Kristal C LUMBER RACKER 350.1.13.10 ity of [facility] 4.2.7.2.686 He as MATERNAL [id number] [facility] ical & CHILD [address] [place] [address] 2021-03-15 2021-03-15 Routine [facility] 1.2.794.439 [id number] Univers 10:45:48 11:41:43 Kristal C LUMBER RACKER 350.1.13.10 ity of Visit [facility] 4.2.7.2.686 He as MATERNAL [id number] [facility] & [address] 2021-03-15 2021-03-15 [facility] [id number] Univers 10:45:00 10:45:[address] [facility] 2021-03-08 2021-03-08 Abstract [facility] 1.2.840.114 [id number] Univers 00:00:00 00:00:00 Kristal C LUMBER RACKER 350.1.13.10 ity of [facility] 4.2.7.2.686 He as MATERNAL [id number] [facility] ical & CHILD [address] [place] [address] 2021-03-07 2021-03-07 Nursing Informatics Clinical Analyst Ultrasound, Mauricio [facility] 1.2 .840.114 [id number] Univers 08:01:40 08:47:24 Visit Elvira Montes LUM[employer] [place]ER 350.1.13.10 ity of REGIONAL 4.2.7.2.686 He as MATERNAL [id number] [facility] & CHILD [address] [place] [address] 2021-03-07 2021-03-07 Outpatient P [facility] [id number] Univers 08:00:00 08:00:00 ity [facility] 2021-02-18 2021-02-18 Outpatient R AKINROSYPE, [facility] [id number] Univers 09:00:00 09:00:[address] o [address] [facility] 2021-02-15 2021-02-15 Routine Tervonpe, [facility] 1.2.179.983 [id number] Univers 10:30:25 11:51:45 Kristal Carrera L[employer] [place]ACKER 350.1.13.10 ity of Visit REGIONAL 4.2.7.2.686 He as MATERNAL [id number] [facility] & CHILD [address] [place] [address] 2021-02-15 2021-02-15 Outpatient R TERESITA, [facility] [id number] Univers 10:30:00 10:30:[address] o [address] [facility] 2021-02-07 2021-02-07 Nursing Informatics Clinical Analyst Ultrasound, [facility] 1.2 .840.114 [id number] Univers 08:58:58 10:11:45 Visit Rob Bernard LUM[employer] [place]ER 350.1.13.10 ity of REGIONAL 4.2.7.2.686 He as MATERNAL [id number] [facility] & CHILD [address] [place] [address] 2021-02-07 2021-02-07 Outpatient P [facility] [id number] Univers 09:00:00 09:00:00 ity [facility] 2021-02-06 2021-02-06 Refill [facility] 1.2.641.062 [id number] Univers 00:00:00 00:00:00 Kristal Carrera LUM[employer] RACKER 350.1.13.10 ity of REGIONAL 4.2.7.2.686 He as MATERNAL [id number] [facility] & CHILD [address] [place] [address] 2021-01-28 2021-01-28 Outpatient P [facility] [id number] Univers 12:00:00 12:00:[address] [facility] 2021-01-28 2021-01-28 Orders Doctor ENA 1.2.840.114 [id number] Univers 00:00:00 00:00:00 Only Unassigned, MARCELLO 350.1.13.10 ity of [place] [facility] 4.2.7.2.686 He as [id number] [address] 2021-01-18 2021-01-18 Routine Akinsipe, [facility] 1.2.411.914 [id number] Univers 10:46:31 11:01:31 Kristal C LUMBER RACKER 350.1.13.10 ity of Visit REGIONAL 4.2.7.2.686 He as MATERNAL [id number] Med ical & CHILD [address] [place] [address] 2021-01-18 2021-01-18 Outpatient R AKINSIPE, [facility] [id number] Univers 10:45:00 10:45:00 KRISTAL salvador o [facility] 2021-01-03 2021-01-03 Outpatient R AKINSIPE, [facility] [id number] Univers 09:45:00 09:45:00 KRISTAL daniiy o [facility] 2020-12-24 2020-12-24 Nursing Informatics Clinical Analyst Sahil Fish Room [facility] 1.2. 840.114 [id number] Univers 10:13:17 10:58:17 Visit Ashanti Matthews L[employer]ER 350.1.13.10 ity of REGIONAL 4.2.7.2.686 He as MATERNAL [id number] [facility] ical & CHILD [address] [place] [address] 2020-12-24 2020-12-24 Nursing Informatics Clinical Analyst [facility] 1.2 .840.114 [id number] Univers 10:34:17 10:43:38 Visit Elisa Montez LUMBER RACKER 350.1.13.10 ity of REGIONAL 4.2.7.2.686 He as MATERNAL [id number] Med ical & CHILD [address] [facility] 2020-12-24 2020-12-24 Outpatient P [facility] [id number] Univers 09:45:00 09:45:[address] [facility] 2020-12-24 2020-12-24 Abstract [facility] 1.2.840.114 [id number] Univers 00:00:00 00:00:00 Kristal C LUMBER RACKER 350.1.13.10 ity of REGIONAL 4.2.7.2.686 He as MATERNAL [id number] [facility] ical & CHILD [address] [place] [address] 2020-12-21 2020-12-21 Routine [facility] 1.2.496.251 [id number] Univers 10:32:22 11:49:49 Kristal C LUMBER RACKER 350.1.13.10 ity of Visit REGIONAL 4.2.7.2.686 He as MATERNAL [id number] [facility] CH[facility] [address] [place] [address] 2020-12-21 2020-12-21 [facility] [id number] Univers 10:30:00 10:30:[address] o f [facility] 2020-12-07 2020-12-07 Nursing Informatics Clinical Analyst 1, [facility] 1.2. 840.114 [id number] Univers 13:20:12 14:05:12 Visit Aiden Taveras Nerissa LUM[employer] RACKER 350.1.13.10 ity of REGIONAL 4.2.7.2.686 He as MATERNAL [id number] Med ical & CHILD [address] [place] [address] 2020-12-07 2020-12-07 Outpatient P [facility] [id number] Univers 13:30:00 13:30:[address] [facility] 2020-12-07 2020-12-07 [facility] 1.2.840.114 [id number] Univers 00:00:00 00:00:00 Kristal C LUMBER RACKER [id number] ity of REGIONAL [id number] He as MATERNAL [id number] [facility] CHILD [address] [place] [address] 2020-12-07 2020-12-07 [facility] [id number] Univers 00:00:00 00:00:00 Kristal C LUMBER RACKER [id number] ity of REGIONAL [id number] He as MATERNAL [id number] [facility] CHILD [address] [place] [address] 2020-12-06 2020-12-06 Routine [facility] [id number] Univers 10:30:15 10:51:33 Kristal C LUMBER RACKER [id number] ity of Visit REGIONAL [id number] He as MATERNAL [id number] [facility] & [address] 2020-12-06 2020-12-06 Outpatient R [facility] [id number] Univers 10:30:00 10:30:00 KRISTAL ity o f [facility] 2020-11-22 2020-11-22 Laboratory Lab, [facility] 1.2.840. [id number] Univers 13:57:07 14:12:07 Only Elisa Montez LUMBER RACKER [id number] ity of REGIONAL [id number] He as MATERNAL [id number] [facility] CHILD [address] [place] [address] 2020-11-22 2020-11-22 Outpatient R [facility] [id number] Univers 14:00:00 14:00:00 ity [facility] 2020-11-15 2020-11-15 Outpatient R [facility] [id number] Univers 14:45:00 14:45:00 ity [facility] 2020-11-13 2020-11-13 Telephone [facility] 1.2.840.114 [id number] Univers 00:00:00 00:00:00 Kristal C LUMBER RACKER [id number] ity of REGIONAL [id number] He as MATERNAL [id number] [facility] & CHILD [address] [place] [address] 2020-11-13 2020-11-13 Telephone [facility] 1.2.840.114 [id number] Univers 00:00:00 00:00:00 Kristal C LUMBER RACKER [id number] ity of REGIONAL [id number] He as MATERNAL [id number] [facility] CHILD [address] [place] [address] 2020-11-09 2020-11-[address] [facility] 1.2.840.114 [id number] Univers 00:00:00 00:00:00 Kristal C LUMBER RACKER [id number] ity of REGIONAL [id number] He as MATERNAL [id number] [facility] & [address] 2020-11-08 2020-11-08 Initial [facility] [id number] Univers 15:17:57 16:17:46 Kristal Carrera LUMBER RACKER [id number] ity of Visit [facility] [id number] He as MATERNAL [id number] [facility] & [address] 2020-11-08 2020-11-08 [facility] [id number] Univers 14:00:00 14:00:00 KRISTAL salvador o f [facility] 2020-11-08 2020-11-08 Orders Doctor ENA [id number] Univers 00:00:00 00:00:00 Only Unassigned, MARCELLO [id number] ity of [place] [facility] [id number] He as [phone] [place] [address] Branch Results This patient has no known results.
[2023-04-30] MEDS ORDERED: DIPHENHYDRAMINE 50 MG/ML VIAL ONE (12:07)
[2023-04-30] MEDS ORDERED: NA CHLORIDE 0.9% 1,000 ML ONE (12:07)
[2023-04-30] MEDS ORDERED: KETOROLAC 30 MG/ML INJ ONE (12:07)
[2023-04-30] MEDS ORDERED: METOCLOPRAMIDE 10 MG/2mL INJ ONE (12:07)
[2023-04-30] MEDS ORDERED: dexAMETHasone 10 MG/ML VIAL ONE (12:07)
--- NOTE | 2023-04-30 13:16 | ER ---
Nurse's Notes [facility] Name: Vicenta Tomlin Age: 22 yrs Sex: Female : 2000 Arrival Date: 04/30/2023 Time: 11:29 Bed 15 Private MD: Diagnosis: Migraine without aura, not intractable Presentation: 04/30 11:42 Chief complaint: Patient states: BAEZ since Thursday night. + nausea at times. Coronavirus ll1 screen: Vaccine status: Patient reports being unvaccinated. Client denies travel out of the [place] in the last 14 days. At this time, the client does not indicate any symptoms associated with coronavirus-19. Ebola Screen: Patient denies travel to an Ebola-affected area in the 21 days before illness onset. Initial Sepsis Screen: Does the patient meet any 2 criteria? No. Patient's initial sepsis screen is negative. Does the patient have a suspected source of infection? No. Patient's initial sepsis screen is negative. Risk Assessment: Do you want to hurt yourself or someone else? Patient reports no desire to harm self or others. Onset of symptoms was April 26, 2023. 11:42 Method Of Arrival: Ambulatory ll1 11:42 Acuity: HUGO 3 ll1 Historical: - Allergies: 11:42 No Known Allergies; ll1 - PMHx: 11:42 Hypothyroidism; ll1 - PSHx: 11:42 buttocks SX; ll1 - Immunization history:: Client reports having NOT received the Covid vaccine. - Social history:: Smoking status: Reported history of juuling and/or vaping. Patient denies any tobacco usage or history of. Screenin:00 [facility] ED Fall Risk Assessment (Adult) History of falling in the last 3 months, aa5 including since admission No falls in past 3 months (0 pts) Confusion or Disorientation No (0 pts) Intoxicated or Sedated No (0 pts) Impaired Gait No (0 pts) Mobility Assist Device Used No (0 pt) Altered Elimination No (0 pt) Score/Fall Risk Level 0 - 2 = Low Risk Oriented to surroundings, Maintained a safe environment, Educated pt \\T\\ family on fall prevention, incl call for assistance when getting out of bed. Abuse screen: Denies threats or abuse. Nutritional screening: No deficits noted. Tuberculosis screening: No symptoms or risk factors identified. Assessment: 12:00 General: Appears comfortable, Behavior is calm, cooperative, Pt states "I was at a [employer] on Thursday and it was inside but it was hot and I also went swimming but at night" . Pain: Complains of pain in head Pain currently is 5 out of 10 on a pain scale. Quality of pain is described as aching, Pain began 2-3 days ago. Is continuous. Neuro: Level of Consciousness is awake, alert, obeys commands, Oriented to person, place, time, situation, Reports photophobia. Cardiovascular: Heart tones S1 S2 present Rhythm is regular. Respiratory: Airway is patent Respiratory effort is even, unlabored, Respiratory pattern is regular, symmetrical. GI: No signs and/or symptoms were reported involving the gastrointestinal system. : No signs and/or symptoms were reported regarding the genitourinary system. EENT: No signs and/or symptoms were reported regarding the EENT system. Derm: Skin is pink, warm \\T\\ dry. Musculoskeletal: Range of motion: intact in all extremities. 12:25 Reassessment: Patient is alert, oriented x 3, equal unlabored respirations, skin aa5 warm/dry/pink. Patient states feeling better. 13:30 Reassessment: Patient is alert, oriented x 3, equal unlabored respirations, skin aa5 warm/dry/pink. Patient states feeling better. Vital Signs: 11:42 BP 137 / 79; Pulse 69; Resp 17; Temp 98.1; Pulse Ox 100% ; Weight 83.91 kg; Height 5 ll1 ft. 6 in. ; Pain 4/10; 12:15 BP 98 / 64; Pulse 54; Resp 16 S; Pulse Ox 100% on R/A; aa5 13:30 BP 113 / 70; Pulse 70; Resp 16 S; Pulse Ox 99% on R/A; aa5 11:42 Body Mass Index 29.86 (83.91 kg, 167.64 cm) ll1 11:42 Pain Scale: Adult ll1 [place] Coma Score: 17:28 Eye Response: spontaneous(4). Motor Response: obeys commands(6). Verbal Response: kb oriented(5). Total: 15. ED Course: 11:31 Patient arrived in ED. rg4 11:32 Jess Ewing FNP-C is PHCP. kb 11:32 Chepe Osei MD is Attending Physician. kb 11:43 Triage completed. ll1 11:43 Arm band placed on Patient placed in an exam room, on a stretcher. ll1 11:48 Kaykay Wilson, RN is Primary Nurse. aa5 12:00 Patient has correct armband on for positive identification. Bed in low position. Call aa5 light in reach. Side rails up X 1. Adult w/ patient. 12:08 Inserted saline lock: 20 gauge in right antecubital area, using aseptic technique. sm8 13:45 No provider procedures requiring assistance completed. IV discontinued, intact, aa5 bleeding controlled, No redness/swelling at site. Pressure dressing applied. Administered Medications: 12:15 Drug: NS 0.9% IV 1000 ml Route: IV; Rate: 1000 ml; Site: right antecubital; aa5 13:30 Follow up: IV Status: Completed infusion; IV Intake: 1000ml aa5 12:15 Drug: metoCLOPramide IVP 10 mg Route: IVP; Site: right antecubital; aa5 12:30 Follow up: Response: No adverse reaction aa5 12:15 Drug: diphenhydrAMINE IVP 12.5 mg Route: IVP; Site: right antecubital; aa5 12:30 Follow up: Response: No adverse reaction aa5 12:15 Drug: Ketorolac IVP 15 mg Route: IVP; Site: right antecubital; aa5 12:30 Follow up: Response: No adverse reaction aa5 12:15 Drug: Decadron - Dexamethasone IVP 10 mg Route: IVP; Site: right antecubital; aa5 12:30 Follow up: Response: No adverse reaction aa5 Medication: 12:15 VIS not applicable for this client. aa5 Intake: 13:30 IV: 1000ml; Total: 1000ml. aa5 Outcome: 13:15 Discharge ordered by . kb 13:45 Discharged to home ambulatory, with family. aa5 13:45 Condition: improved 13:45 Discharge instructions given to patient, Instructed on discharge instructions, follow up and referral plans. Demonstrated understanding of instructions, follow-up care. 13:52 Patient left the ED. aa5 Signatures: Jess Ewing, COMMUNITY SERVICE ORGANIZATION DIRECTOR-C COMMUNITY SERVICE ORGANIZATION DIRECTOR-Ckb Kaykay Wilson, RN RN aa5 Lizeth Mejia rg4 Mani Leonard, RN RN ll1 Serenity Patel sm8 Corrections: (The following items were deleted from the chart) 16:59 13:49 Removal of peripheral IV. Catheter intact, dressing applied. 8 [facility] : 17:00 General: Appears comfortable, Behavior is calm, cooperative, Pt states "I was at [facility] a birthday republic[employer] on Thursday and it was inside but it was hot and I also went swimming but at night" . [facility] 17: 17:00 Pain: Complains of pain in head Pain currently is 5 out of 10 on a pain scale. [facility] Quality of pain is described as aching, Pain began 2-3 days ago. Is continuous, [facility] 17: 17:00 Neuro: Level of Consciousness is awake, alert, obeys commands, Oriented to [facility] person, place, time, situation, Reports photophobia [facility] : 17:00 Cardiovascular: Heart tones S1 S2 present Rhythm is [facility] 17: 17:00 Respiratory: Airway is patent Respiratory effort is even, unlabored, Respiratory [facility] pattern is regular, symmetrical, [facility] 17: 17:00 GI: No signs and/or symptoms were reported involving the gastrointestinal system. aa5 [facility] 17: 17:00 : No signs and/or symptoms were reported regarding the genitourinary system. [facility] 17: 17:00 EENT: No signs and/or symptoms were reported regarding the EENT system. 5 [facility] 17: 17:00 Derm: Skin is pink, warm \\T\\ dry. [place] [address] 17: 17:00 Musculoskeletal: Range of motion: intact in all extremities, [place] [address]
--- NOTE | 2023-04-30 13:16 | EDPHYS ---
Physician Documentation [facility] Name: Vicenta Tomlin Age: 22 yrs Sex: Female : 2000 Arrival Date: 04/30/2023 Time: 11:29 Bed 15 Private MD: ED Physician Chepe Osei HPI: 04/30 17:24 This 22 yrs old Female presents to ER via Ambulatory with complaints of kb Migraine. 17:27 The patient complains of pain to the top of head. The patient describes the headache as kb throbbing. Onset: The symptoms/episode began/occurred 3 day(s) ago. Associated signs and symptoms: Pertinent positives: Photophobia. Severity of symptoms: At its worst the pain was moderate, in the emergency department the pain is unchanged. Headache History: Denies prior headaches. The symptoms are alleviated by nothing. the symptoms are aggravated by lights. The patient has not experienced similar symptoms in the past. The patient has not recently seen a physician. Historical: - Allergies: 11:42 No Known Allergies; ll1 - PMHx: 11:42 Hypothyroidism; ll1 - PSHx: 11:42 buttocks SX; ll1 - Immunization history:: Client reports having NOT received the Covid vaccine. - Social history:: Smoking status: Reported history of juuling and/or vaping. Patient denies any tobacco usage or history of. ROS: 13:34 Constitutional: Negative for fever, chills, and weight loss, ENT: Negative for injury, kb pain, and discharge, Cardiovascular: Negative for chest pain, palpitations, and edema, Respiratory: Negative for shortness of breath, cough, wheezing, and pleuritic chest pain, Abdomen/GI: Negative for abdominal pain, nausea, vomiting, diarrhea, and constipation, MS/Extremity: Negative for injury and deformity, Skin: Negative for injury, rash, and discoloration. 13:34 Neuro: Positive for headache. 13:34 All other systems are negative. Exam: 13:34 Constitutional: This is a well developed, well nourished patient who is awake, alert, kb and in no acute distress. Head/Face: Normocephalic, atraumatic. ENT: Moist Mucous membranes Cardiovascular: Regular rate and rhythm with a normal S1 and S2. No gallops, murmurs, or rubs. No pulse deficits. Respiratory: Respirations even and unlabored. No increased work of breathing. Talking in full sentences Abdomen/GI: Soft, non-tender. No distention Skin: Warm, dry with normal turgor. Normal color. MS/ Extremity: Pulses equal, no cyanosis. Neurovascular intact. Full, normal range of motion. Neuro: Awake and alert, GCS 15, oriented to person, place, time, and situation. Moves all extremities. Normal gait. Vital Signs: 11:42 BP 137 / 79; Pulse 69; Resp 17; Temp 98.1; Pulse Ox 100% ; Weight 83.91 kg; Height 5 ll1 ft. 6 in. ; Pain 4/10; 12:15 BP 98 / 64; Pulse 54; Resp 16 S; Pulse Ox 100% on R/A; aa5 13:30 BP 113 / 70; Pulse 70; Resp 16 S; Pulse Ox 99% on R/A; aa5 11:42 Body Mass Index 29.86 (83.91 kg, 167.64 cm) ll1 11:42 Pain Scale: Adult ll1 [place] Coma Score: 17:28 Eye Response: spontaneous(4). Motor Response: obeys commands(6). Verbal Response: kb oriented(5). Total: 15. MDM: 11:32 Patient medically screened. kb 13:35 Data reviewed: vital signs, nurses notes. kb 17:28 Differential diagnosis: migraine, sinusitis, tension headache. Test considered but Not kb performed: CT: CT head considered, but pt has no neuro deficits, nontoxic in appearance. Counseling: I had a detailed discussion with the patient and/or guardian regarding: the historical points, exam findings, and any diagnostic results supporting the discharge/admit diagnosis, the need for outpatient follow up, a family practitioner, to return to the emergency department if symptoms worsen or persist or if there are any questions or concerns that arise at home. Response to treatment: the patient's symptoms have resolved after treatment. 04/30 11:45 Order name: IV Start; Complete Time: 12:08 kb Administered Medications: 12:15 Drug: NS 0.9% IV 1000 ml Route: IV; Rate: 1000 ml; Site: right antecubital; aa5 13:30 Follow up: IV Status: Completed infusion; IV Intake: 1000ml aa5 12:15 Drug: metoCLOPramide IVP 10 mg Route: IVP; Site: right antecubital; aa5 12:30 Follow up: Response: No adverse reaction aa5 12:15 Drug: diphenhydrAMINE IVP 12.5 mg Route: IVP; Site: right antecubital; aa5 12:30 Follow up: Response: No adverse reaction aa5 12:15 Drug: Ketorolac IVP 15 mg Route: IVP; Site: right antecubital; aa5 12:30 Follow up: Response: No adverse reaction aa5 12:15 Drug: Decadron - Dexamethasone IVP 10 mg Route: IVP; Site: right antecubital; aa5 12:30 Follow up: Response: No adverse reaction aa5 Disposition Summary: 04/30/23 13:15 Discharge Ordered Location: Home kb Condition: Stable kb Diagnosis - Migraine without aura, not intractable kb Followup: kb - With: Emergency Department - When: As needed - Reason: Worsening of condition Followup: kb - With: Private Physician - When: 2 - 3 days - Reason: Recheck today's complaints, Continuance of care, Re-evaluation by your physician Discharge Instructions: - Discharge Summary Sheet kb - Migraine Headache, [id number] kb Forms: - Medication Reconciliation Form kb - Thank You Letter kb - Antibiotic Education kb - Prescription Opioid Use kb - [email or web address] kb Signatures: Jess Ewing, ROSALIE WILKINS-Kaykay Hou, RN RN aa5 Mani Leonard RN RN ll1
[2023-04-30 14:13] VITALS: TEMP 98.1; O2SAT 100
[2023-04-30 14:56] VITALS: BP 98/64
== END 2023-04-30 13:52 | disposition home or self-care (01) ==
LOC: ER 11:29
DX: G43.009 Migraine without aura, not intractable, without status migrainosus (principal)
CPT/HCPCS: 96361; 96375; 96374; 99284; J2765; J1200; J1100; J7030

== ENCOUNTER → 2023-10-14 | Emergency (ER) | payer OTHER ==
--- OUTSIDE RECORDS SUMMARY | 2023-10-14 09:23 | XMS REPORT | Continuity of Care Document ---
Author Name Unknown Address [address] [facility] [address] [place] [address] [facility] thconnect Address [address] [facility] 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 Name Role Phone DANILO BROWNE Primary Care Physician [phone] [email or web address]_S Attending Clinician UnavailJO Brambila Attending Clinician Unavail able NEVILLE_ALEXI Attending Clinician Unavailable JONNIE PERKINS Attending Clinician Unavailabl e [facility] Kristal Carrera Attending Clinician + KRISTAL LO Attending Clinician Unavail able Byron JEFFERSON, Ashanti Attending Clinician [phone] Patria Matthews MD Attending Clinician [phone] Lacey JEFFERSON, Alix Attending Clinician [phone] Lab, HermanRmchanish Attending Clinician Unavailable Vaishali MSN, Elisa Donato Attending Clinician [phone] Ultrasound, Messi-Mfm Attending Clinician UnavailAiden Goss MD Attending Clinician Faculty, [facility] Attending Clinician Ana Segura MD, Armando F Attending Clinician [phone] Simon JEFFERSON, Elvira Reinoso Attending Clinician [phone] Doctor Unassigned, [place] Attending Clinician U ele Bernard MD, Rob Reinoso Attending Clinician [phone] 1, [facility] Room Attending Clinician Unavailab le Lab/Pedi, [facility] Attending Clinician Unavaila ble Lab, Pea-Rmchp Attending Clinician Unavailable [email or web address]_S Admitting Clinician Unavaila ble LISTER_MELISSA Admitting Clinician Unavailable Byron JEFFERSON, Ashanti Admitting Clinician [phone] Payers Payer Name Policy Type Policy Number Effective Date Expirati on Date Source [facility] [id number] 2021 00:00:00 [employer] COMM[employer] OUT OF NETWORK [id number] 2020 00:00:00 [employer] - CHOICE (POS II) [id number] 2023 00:00:00 [facility] [id number] 2023 00:00:00 [place] [id number] 2018 00:00:00 MED[place] [id number] 2021 00:00:00 Problems Condition Name Condition Details Condition Category Status Onset Date Resolution Date Last Treatment Date Treating Clinician Comments Source Right knee pain Right knee pain Disease Active 2022-10 00:00: 00 [facility] Internal derangemen t of right knee Internal derangemen t of right knee Disease Active 2022-10 00:00: 00 Last Assessmen t & Plan: Formattin g of this note might be different from the original. With regards to her knee pain, she has difficult y and mild minimal pain and discomfor t. She would like to try and get an MRI if any worsening symptoms. Recommend rest, ice, compressi on, elevation (RICE) Tylenol and ibuprofen as needed. Follow-up after MRI if able to do so if any worse symptoms. Patient will hold for the time being and monitor symptoms. Otherwise stable. [facility] Closed avulsion fracture of metatarsal bone of right foot Closed avulsion fracture of metatarsal bone of right foot Disease Active 2022-10 0-12 00:00: 00 Last Assessmen t & Plan: Formattin g of this note might be different from the original. Change from tall boot to a postop shoe. May follow-up as needed may slowly transitio n to regular footwear if improved. Doing simply better. [facility] Right foot pain Right foot pain Disease Active 2022-10 0-12 00:00: 00 [facility] Routine follow-up Routine follow-up Disease Active 9-27 00:00: 00 [facility] Obesity (BMI 30-39.9) Obesity (BMI 30-39.9) Disease Active 9-03 00:00: 00 [facility] Pruritus Pruritus Disease Active 6-04 00:00: 00 [facility] Pruritus Pruritus Disease Active 6-04 00:00: 00 [facility] Lab test positive for detection of COVID-19 virus Lab test positive for detection of COVID-19 virus Disease Active 1-15 00:00: 00 [facility] Hypothyroi d in , antepartum Hypothyroi d in , antepartum Disease Active 1-14 00:00: 00 Overview: Formattin g of this note might be different from the original. Reports was dx and started on meds, labs wnl [facility] Allergies, Adverse Reactions, Alerts Allergy Name Allergy Type Status Severity Reaction(s) Onset Date Inactive Date Treating Clinician Comments Source NO KNOWN ALLERGIE S Drug Class Active [facility] Social History Social Habit Start Date Stop Date Quantity Comments Source History SDOH Alcohol Comment [facility] ASSERTION [facility] Sexual orientation [facility] Alcohol intake 2023-08-27 00:00:00 2023-08-27 00:00:00 Current drinker of alcohol (finding) [facility] History of Social function 2023-08-27 00:00:00 2023-08-27 00:00:00 [facility] Tobacco use and exposure 2023-08-06 00:00:00 2023-08-06 00:00:00 Smokeless tobacco non-user [facility] Exposure to SARS-CoV-2 (event) 2021-06-22 00:00:00 2021-07-22 10:55:00 Not sure [facility] History SDOH Alcohol Frequency 2020-11-08 00:00:00 2020-11-08 00:00:00 1 [facility] History SDOH Alcohol Std Drinks 2020-11-08 00:00:00 2020-11-08 00:00:00 99 [facility] History SDOH Alcohol Binge 2020-11-08 00:00:00 2020-11-08 00:00:00 1 [facility] Sex Assigned At 2000 00:00:00 2000 00:00:00 [facility] Smoking Status Start Date Stop Date Source Never smoked tobacco [facility] Medications Ordered Medication Name Filled Medication Name Start Date Stop Date Current Medication? Ordering Clinician Indication Dosage Frequency Signature (SIG) Comments Components Source levothyroxi ne (Synthroid, Levoxyl) 25 MCG tablet 06-15 00:00: 00 Yes 1{tbl} QD Take 1 tablet by mouth 1 (one) time each day. [facility] levothyroxi ne (Synthroid, Levoxyl) 25 MCG tablet 06-15 00:00: 00 Yes 1{tbl} QD Take 1 tablet by mouth 1 (one) time each day. [facility] levothyroxi ne (Synthroid, Levoxyl) 25 MCG tablet 06-15 00:00: 00 Yes 1{tbl} QD Take 1 tablet by mouth 1 (one) time each day. [facility] levothyroxi ne (Synthroid, Levoxyl) 25 MCG tablet 06-15 00:00: 00 Yes 1{tbl} QD Take 1 tablet by mouth 1 (one) time each day. [facility] metroNIDAZO LE 500 mg tablet 07-24 00:00: 00 Yes [id number] 500mg Take 1 tablet by mouth 2 (two) times daily. [facility] levothyroxi ne 50 mcg tablet 07-01 00:00: 00 Yes [id number] 50ug Take 1 tablet by mouth every morning. [facility] vit/iron fum/folic ac ( 1 + 1 ORAL) 06-30 18:02: 06 Yes Take by mouth 2 (two) times daily. [facility] vit/iron fum/folic ac ( 1 + 1 ORAL) 06-30 18:02: 06 Yes Take by mouth 2 (two) times daily. [facility] vit/iron fum/folic ac ( 1 + 1 ORAL) 06-30 18:02: 06 Yes Take by mouth 2 (two) times daily. [facility] docusate calcium 240 mg capsule 06-30 00:00: 00 Yes [id number] 240mg Take 1 capsule by mouth once daily as needed for Constipati on. [facility] ibuprofen 600 mg tablet 06-30 00:00: 00 Yes [id number] 600mg Take 1 tablet by mouth every 6 (six) hours as needed for Pain (scale 4-6). [facility] acetaminoph en 325 mg tablet 06-30 00:00: 00 07-01 04:59 :00 No [id number] 650mg Take 2 tablets by mouth every 6 (six) hours as needed for Pain (scale 1-3). [facility] LEVOTHYROXI NE 25 mcg tablet 04-02 00:00: 00 Yes [id number] TAKE 1 TABLET BY MOUTH EVERY DAY IN THE MORNING [facility] Immunizations Ordered Immunization Name Filled Immunization Name Date Status Comments Source TDAP 2021-04-12 00:00:00 Completed [facility] Meningococcal Polysaccharide (groups A, C, Y and W-135) conjugate vaccine (MCV4P) 2019-05-09 00:00:00 Completed [facility] Meningococcal Polysaccharide (groups A, C, Y and W-135) conjugate vaccine (MCV4P) Unknown Completed [facility] Meningococcal Polysaccharide (groups A, C, Y and W-135) conjugate vaccine (MCV4P) Unknown Completed [facility] Vital Signs Vital Name Observation Time Observation Value Comments S ource Body height 2023-08-27 15:46:00 [facility]6 [facility] Body weight 2023-08-27 15:46:00 79.379 [facility] BMI 2023-08-27 15:46:00 28.25 kg/m2 [facility] Body height 2023-08-20 19:21:00 167.6 cm [facility] Body weight 2023-08-20 19:21:00 79.379 [facility] BMI 2023-08-20 19:21:00 28.25 kg/m2 [facility] Body height 2023-08-06 18:36:00 167.6 cm [facility] Body weight 2023-08-06 18:36:00 79.379 [facility] BMI 2023-08-06 18:36:00 28.25 kg/m2 [facility] Encounters Start Date/Time End Date/Time Encounter Type Admission Type Attending [facility] Care Facility Care Department Encounter ID Source 2021-08-26 20:10:20 Outpatient [facility] [id number] [facility] 2023-10-09 00:00:00 2023-10-09 00:00:00 Outpatient GC_GCBZW_Ka diyala_S PRIV PRIV [id number] [facility] 2023-09-10 15:30:00 2023-09-10 15:30:00 Outpatient JO MCKEON [facility] [id number] [facility] 2023-08-27 10:55:00 2023-08-27 15:12:34 Outpatient [facility] [id number] [facility] 2023-08-27 10:45:00 2023-08-27 11:36:09 Office Visit Jo Mckeon [facility] 1.2.840.114 350.1.13.58 9.2.7.2.[id number] [facility] 2023-08-26 00:00:00 2023-08-26 00:00:00 Outpatient GC_GCBZW_Ka diyala_S PRIV PRIV [id number] [facility] 2023-08-20 14:50:00 2023-08-20 15:01:49 Outpatient [facility] [id number] [facility] 2023-08-20 14:20:00 2023-08-20 15:01:41 Outpatient [facility] [id number] [facility] 2023-08-20 14:15:00 2023-08-20 15:01:34 [place] [facility] 1.2.840.114 350.1.13.58 9.2.7.2.[id number] [facility] 2023-08-20 14:15:00 2023-08-20 14:15:00 Outpatient [facility] [id number] [facility] 2023-08-06 13:50:00 2023-08-06 14:53:44 Outpatient [facility] [id number] [facility] 2023-08-06 13:45:00 2023-08-06 14:01:43 Outpatient [facility] [id number] [facility] 2023-08-06 13:45:00 2023-08-06 14:00:24 Office Visit [place] [place] [facility] 1..840.114 350.1.13.58 9.2.7.2.[id number] [facility] 2021-11-21 11:50:00 2021-11-21 11:50:00 Outpatient LISTER_MELI [facility] [id number] Luis [facility] 2021-08-12 09:45:00 2021-08-12 09:45:00 Outpatient JONNIE CASTANON [facility] [id number] [facility] 2021-07-24 00:00:00 2021-07-24 00:00:00 Telephone Kristal Lo [facility] [employer] [facility] 1..840.114 350.1.13.10 4.2.7.2.686 [id number] [facility] 2021-07-22 10:38:18 2021-07-22 11:08:47 Routine Visit RhodaalemAndrezKristal C [facility] WHE[employer] SUPERVISOR [facility] MATERNAL & CHILD [facility] 1.2.840.114 350.1.13.10 4.2.7.2.686 [id number] [facility] 2021-07-22 10:30:00 2021-07-22 10:30:00 Outpatient R RAJEEVROSYALEM KRISTAL [facility] [id number] [facility] 2021-06-28 07:32:00 2021-06-30 18:02:00 Hospital Encounter Ashanti Matthews [facility] 1.2.840.114 350.1.13.10 4.2.7.2.686 [id number] [facility] 2021-06-28 19:42:00 2021-06-29 12:45:00 [facility] 1.2.840.114 350.1.13.10 4.2.7.2.686 [id number] [facility] 2021-06-25 15:51:01 2021-06-25 16:06:01 Routine Visit Rhodaalem Kristal Carrera [facility] WHE[employer] SUPERVISOR [facility] MATERNAL & CHILD [facility] 1.2840.114 350.1.13.10 4.2.7.2.686 [id number] [facility] 2021-06-25 15:45:00 2021-06-25 15:45:00 Outpatient R RHODAALEMANDREZKRISTAL [facility] [id number] [facility] 2021-06-21 00:00:00 2021-06-21 00:00:00 Telephone Kristal Lo [facility] WHE[employer] SUPER[employer]OR [facility] MATERNAL & CHILD [facility] 1.2.840.114 350.1.13.10 4.2.7.2.686 [id number] [facility] 2021-06-19 16:05:42 2021-06-19 16:28:41 Routine Visit Kristal Lo IACHERELLE [employer] [facility] & CHILD [facility] 1..840.114 350.1.13.10 4.2.7.2.686 [id number] [facility] 2021-06-19 16:00:00 2021-06-19 16:00:00 Outpatient R KRISTAL LO [facility] [id number] [facility] 2021-06-12 14:00:00 2021-06-12 14:00:00 Outpatient R KRISTAL LO [facility] [id number] [facility] 2021-06-12 08:41:17 2021-06-12 08:56:17 Routine Visit Kristal Lo [facility] WHE[employer] SUPERVISOR [facility] CHILD [facility] 1..840.114 350.1.13.10 4.2.7.2.686 [id number] [facility] 2021-06-12 08:30:00 2021-06-12 08:30:00 Outpatient R KRISTAL LO [facility] [id number] [facility] 2021-06-10 14:59:28 2021-06-10 15:14:28 Clinical Manager Home Care Visit Lab, Ang-Rmchp Kristal Lo [facility] WHE[employer] SUPER[employer]OR [facility] & CHILD [facility] 1..840.114 350.1.13.10 4.2.7.2.686 [id number] [facility] 2021-06-10 13:00:00 2021-06-10 13:00:00 Outpatient R KRISTAL LO [facility] [id number] [facility] 2021-06-06 00:00:00 2021-06-06 00:00:00 Telephone Kristal Lo [facility] WHE[employer] SUPER[employer]OR [facility] & CHILD [facility] 1.2.840.114 350.1.13.10 4.2.7.2.686 [id number] [facility] 2021-06-06 00:00:00 2021-06-06 00:00:00 Telephone Elisa Tom [facility] WHE[employer] SUPERVISOR [facility] MATERNAL & CHILD [facility] 1.2.840.114 350.1.13.10 4.2.7.2.686 [id number] [facility] 2021-06-06 00:00:00 2021-06-06 00:00:00 Telephone Kristal Lo [facility] WHE[employer] SUPER[employer]OR [facility] CHILD [facility] 1.2.840.114 350.1.13.10 4.2.7.2.686 [id number] [facility] 2021-06-05 08:39:29 2021-06-05 09:23:30 Routine Visit Kristal Lo [facility] WHE[employer] SUPER[employer]OR [facility] CHILD [facility] 1.840.114 350.1.13.10 4.2.7.2.686 [id number] [facility] 2021-06-05 08:30:00 2021-06-05 08:30:00 Outpatient R KRISTAL LO [facility] [id number] [facility] 2021-06-05 00:00:00 2021-06-05 00:00:00 Telephone Kristal Lo [facility] WHE[employer] [facility] CHILD [facility] 1.2.840.114 350.1.13.10 4.2.7.2.686 [id number] [facility] 2021-05-30 00:00:00 2021-05-30 00:00:00 Abstract Kristal Lo [facility] WHE[employer] SUPER[employer]OR [facility] CHILD [facility] 1.2.840.114 350.1.13.10 4.2.7.2.686 [id number] [facility] 2021-05-27 13:51:09 2021-05-27 14:21:09 Clinical Manager Home Care Visit Ultrasound, Aiden Hernandez [facility] WHE[employer] SUPERVISOR [facility] MATERNAL & CHILD [facility] 1.2.840.114 350.1.13.10 4.2.7.2.686 [id number] [facility] 2021-05-27 13:45:00 2021-05-27 13:45:00 Outpatient P [facility] [id number] [facility] 2021-05-22 13:20:55 2021-05-22 13:50:57 Routine Visit Kristal Lo [facility] WHE[employer] SUPER[employer]OR [facility] CHILD [facility] 1.2.840.114 350.1.13.10 4.2.7.2.686 [id number] [facility] 2021-05-22 13:00:00 2021-05-22 13:00:00 Outpatient R KRISTAL LO [facility] [id number] [facility] 2021-05-08 13:22:34 2021-05-08 14:01:37 Routine Visit Kristal Lo [facility] WHE[employer] SUPERVISOR [facility] CHILD [facility] 1.2.840.114 350.1.13.10 4.2.7.2.686 [id number] [facility] 2021-05-08 13:22:34 2021-05-08 14:01:37 Routine Visit Kristal Lo [facility] WHE[employer] SUPERVISOR [facility] CHILD [facility] 1.2.840.114 350.1.13.10 4.2.7.2.686 [id number] 2021-05-08 13:15:00 2021-05-08 13:15:00 Outpatient R KRISTAL LO [facility] [id number] [facility] 2021-05-08 00:00:00 2021-05-08 00:00:00 Refill Kristal Lo [facility] WHE[employer] SUPER[employer]OR [facility] CHILD [facility] 1.2.840.114 350.1.13.10 4.2.7.2.686 [id number] [facility] 2021-05-08 00:00:00 2021-05-08 00:00:00 Refill Kristal Lo [facility] WHE[employer] SUPERVISOR [facility] CHILD [facility] 1.2.840.114 350.1.13.10 4.2.7.2.686 [id number] 2021-04-24 12:46:09 2021-04-24 13:31:30 Routine Visit Kristal Lo [facility] WHE[employer] SUPERVISOR [facility] CHILD [facility] 1.2.840.114 350.1.13.10 4.2.7.2.686 [id number] [facility] 2021-04-24 12:46:09 2021-04-24 13:31:30 Routine Visit Kristal Lo [facility] WHE[employer] SUPERVISOR [facility] CHILD [facility] 1.2.840.114 350.1.13.10 4.2.7.2.686 [id number] 2021-04-24 12:45:00 2021-04-24 12:45:00 Outpatient R KRISTAL LO [facility] [id number] [facility] 2021-04-22 14:17:33 2021-04-22 15:26:46 Routine Visit Faculty, Ashanti Pulido [facility] WHE[employer] SUPERVISOR [facility] CHILD [facility] 1.2.840.114 350.1.13.10 4.2.7.2.686 [id number] [facility] 2021-04-22 14:17:33 2021-04-22 15:26:46 Routine Visit Faculty, Messi Mathew [facility] WHE[employer] SUPERVISOR [facility] MATERNAL & CHILD [facility] 1.2.840.114 350.1.13.10 4.2.7.2.686 [id number] 2021-04-22 14:15:00 2021-04-22 14:15:00 Outpatient R [facility] [id number] [facility] 2021-04-15 00:00:00 2021-04-15 00:00:00 Telephone Kristal Lo [facility] WHE[employer] SUPERVISOR [facility] MATERNAL & CHILD [facility] 1.2.840.114 350.1.13.10 4.2.7.2.686 [id number] [facility] 2021-04-15 00:00:00 2021-04-15 00:00:00 Telephone Kristal Lo [facility] WHEEL SH[employer] SUPERVISOR [facility] CHILD [facility] 1.2.840.114 350.1.13.10 4.2.7.2.686 [id number] 2021-04-12 08:00:44 2021-04-12 09:23:11 Routine Visit Kristal Lo [facility] WHEEL [employer] SUPERVISOR [facility] CHILD [facility] 1.2.840.114 350.1.13.10 4.2.7.2.686 [id number] [facility] 2021-04-12 08:00:00 2021-04-12 08:00:00 Outpatient R KRISTAL LO [facility] [id number] [facility] 2021-04-05 00:00:00 2021-04-05 00:00:00 Telephone Kristal Lo [facility] WHE[employer] SUPERVISOR [facility] CHILD [facility] 1.2.840.114 350.1.13.10 4.2.7.2.686 [id number] [facility] 2021-04-05 00:00:00 2021-04-05 00:00:00 Abstract Andrez Loirvin Carrera [facility] WHEEL [employer] SUPERVISOR [facility] CHILD [facility] 1.2.840.114 350.1.13.10 4.2.7.2.686 [id number] [facility] 2021-04-03 09:43:30 2021-04-03 10:13:30 Clinical Manager Home Care Visit Ultrasound, Mauricio Segura, Armando Montes, Elvira Reinoso [facility] WHE[employer] SUPERVISOR [facility] CHILD [facility] 1.2840.114 350.1.13.10 4.2.7.2.686 [id number] [facility] 2021-04-03 09:30:00 2021-04-03 09:30:00 Outpatient P [facility] [id number] [facility] 2021-03-29 12:48:56 2021-03-29 13:44:56 Routine Visit Kristal Lo [facility] 1.2840.114 350.1.13.10 4.2.7.2.686 [id number] [facility] 2021-03-29 12:45:00 2021-03-29 12:45:00 Outpatient R KRISTAL LO [facility] [id number] [facility] 2021-03-29 00:00:00 2021-03-29 00:00:00 Refill Kristal Lo [facility] WHEEL [employer] SUPERVISOR [facility] CHILD [facility] 1.2.840.114 350.1.13.10 4.2.7.2.686 [id number] [facility] 2021-03-21 10:18:43 2021-03-21 11:15:52 Routine Visit Kristal Lo [facility] WHE[employer] SUPERVISOR [facility] 1.2.840.114 350.1.13.10 4.2.7.2.686 [id number] [facility] 2021-03-21 10:15:00 2021-03-21 10:15:00 [id number] 2021-03-21 00:00:00 2021-03-21 00:00:00 Orders Only Doctor Unassigned, [place] [facility] 1.2840.114 350.1.13.10 4.2.7.2.686 [id number] [facility] 2021-03-18 00:00:00 2021-03-18 00:00:00 Patient Secure Msg Kristal Lo [facility] WHE[employer] SUPERVISOR [facility] CHILD [facility] 1.284.114 350.1.13.10 4.2.7.2.686 [id number] [facility] 2021-03-18 00:00:00 2021-03-18 00:00:00 Telephone Kristal Lo [facility] WHE[employer] SUPERVISOR [facility] CHILD [facility] 1.2840.114 350.1.13.10 4.2.7.2.686 [id number] [facility] 2021-03-15 10:45:48 2021-03-15 11:41:43 Routine Visit Kristal Lo IACHERELLE [employer] SUPER[employer]OR [facility] CHILD [facility] 1.2840.114 350.1.13.10 4.2.7.2.686 [id number] [facility] 2021-03-15 10:45:00 2021-03-15 10:45:00 Outpatient R KRISTAL LO IACHERELLE [facility] [id number] [facility] 2021-03-08 00:00:00 2021-03-08 00:00:00 Abstract Kristal Lo [facility] [employer] [facility] 1.2840.114 350.1.13.10 [id number] [id number] [facility] 2021-03-07 08:01:40 2021-03-07 08:47:24 Clinical Manager Home Care Visit Ultrasound, Elvira Flores [facility] [employer] [facility] 1..840.114 350.1.13.10 4.2.7.2.686 [id number] [facility] 2021-03-07 08:00:00 2021-03-07 08:00:00 Outpatient P [facility] [id number] [facility] 2021-02-18 09:00:00 2021-02-18 09:00:00 Outpatient R KRISTAL LO [facility] [id number] [facility] 2021-02-15 10:30:25 2021-02-15 11:51:45 Routine Visit Kristal Lo [facility] [employer] [facility] 1..840.114 350.1.13.10 4.2.7.2.686 [id number] [facility] 2021-02-15 10:30:00 2021-02-15 10:30:00 Outpatient R KRISTAL LO [facility] [id number] [facility] 2021-02-07 08:58:58 2021-02-07 10:11:45 Clinical Manager Home Care Visit Ultrasound, Rob Priest [facility] [employer] [facility] ..840.114 350.1.13.10 4.2.7.2.686 [id number] [facility] 2021-02-07 09:00:00 2021-02-07 09:00:00 Outpatient P [facility] [id number] [facility] 2021-02-06 00:00:00 2021-02-06 00:00:00 Refill Kristal Lo [facility] [employer] [facility] 1.840.114 350.1.13.10 4.2.7.2.686 [id number] [facility] 2021-01-28 12:00:00 2021-01-28 12:00:00 Outpatient P [facility] [id number] [facility] 2021-01-28 00:00:00 2021-01-28 00:00:00 Orders Only Doctor Unassigned, [place] [facility] 1.840.114 350.1.13.10 4.2.7.2.686 [id number] [facility] 2021-01-18 10:46:31 2021-01-18 11:01:31 Routine Visit Kristal Lo [facility]N [facility] 1.840.114 350.1.13.10 4.2.7.2.686 [id number] [facility] 2021-01-18 10:45:00 2021-01-18 10:45:00 Outpatient R KRISTAL LO [facility] [id number] [facility] 2021-01-03 09:45:00 2021-01-03 09:45:00 Outpatient R KRISTAL LO [facility] [id number] [facility] 2021-01-01 00:00:00 2021-01-01 00:00:00 Patient Secure Msg Doctor Unassigned, [place] [facility] 1.840.114 350.1.13.10 4.2.7.2.686 [id number] [facility] 2020-12-24 10:13:17 2020-12-24 10:58:17 Clinical Manager Home Care Visit 1, Sahil Room Ashanti Matthews [facility] [employer] [facility] 1.0.114 350.1.13.10 4.2.7.2.686 [id number] [facility] 2020-12-24 10:34:17 2020-12-24 10:43:38 Clinical Manager Home Care Visit Lab/Jamir Kuhn Jennifer A [facility] [employer] [facility] 1.0.114 350.1.13.10 4.2.7.2.686 [id number] [facility] 2020-12-24 09:45:00 2020-12-24 09:45:00 Outpatient P [facility] [id number] [facility] 2020-12-24 00:00:00 2020-12-24 00:00:00 Abstract Kristal Lo [facility] [employer] [facility] 1.0.114 350.1.13.10 4.2.7.2.686 [id number] [facility] 2020-12-21 10:32:22 2020-12-21 11:49:49 Routine Visit Kristal Lo [facility] [employer] [facility] 1.840.114 350.1.13.10 4.2.7.2.686 [id number] [facility] 2020-12-21 10:30:00 2020-12-21 10:30:00 Outpatient R KRISTAL LO [facility] [id number] [facility] 2020-12-07 13:20:12 2020-12-07 14:05:12 Clinical Manager Home Care Visit 1, Sahil Aiden Graham [facility] [employer] [facility] 1.840.114 350.1.13.10 4.2.7.2.686 [id number] [facility] 2020-12-07 13:30:00 2020-12-07 13:30:00 Outpatient P [facility] [id number] [facility] 2020-12-07 00:00:00 2020-12-07 00:00:00 Telephone Kristal Lo [facility] [employer] [facility] 1.2.840.114 350.1.13.10 4.2.7.2.686 [id number] [facility] 2020-12-07 00:00:00 2020-12-07 00:00:00 Abstract Kristal Lo [facility] [employer] [facility] 1.2.840.114 350.1.13.10 4.2.7.2.686 [id number] [facility] 2020-12-06 10:30:15 2020-12-06 10:51:33 Routine Visit Kristal Lo [facility] [employer] [facility] 1.2.840.114 350.1.13.10 4.2.7.2.686 [id number] [facility] 2020-12-06 10:30:00 2020-12-06 10:30:00 Outpatient R KRISTAL LO [facility] [id number] [facility] 2020-11-22 13:57:07 2020-11-22 14:12:07 Laboratory Only Lab, Pea-MasonchElisa Alexis [facility] [employer] [facility] 1.2.840.114 350.1.13.10 4.2.7.2.686 [id number] [facility] 2020-11-22 14:00:00 2020-11-22 14:00:00 Outpatient R [facility] [id number] [facility] 2020-11-15 14:45:00 2020-11-15 14:45:00 Outpatient R [facility] [id number] [facility] 2020-11-13 00:00:00 2020-11-13 00:00:00 Telephone Kristal Lo [facility] [employer] [facility] 1.2.840.114 350.1.13.10 4.2.7.2.686 [id number] [facility] 2020-11-13 00:00:00 2020-11-13 00:00:00 Telephone Kristal Lo Debi [facility] [employer] [facility] 1.2.840.114 350.1.13.10 4.2.7.2.686 [id number] [facility] 2020-11-09 00:00:00 2020-11-09 00:00:00 Telephone RajeevAndrez harringtonirvin Carrera [facility] [employer] [facility] 1.2.840.114 350.1.13.10 4.2.7.2.686 [id number] [facility] 2020-11-08 15:17:57 2020-11-08 16:17:46 Initial Visit RajeevKristal harrington Debi [facility] 1.2.840.114 350.1.13.10 4.2.7.2.686 [id number] [facility] 2020-11-08 14:00:00 2020-11-08 14:00:00 Outpatient R RAJEEVBRANDEE KRISTAL [facility] [id number] [facility] 2020-11-08 00:00:00 2020-11-08 00:00:00 Orders Only Doctor Unassigned, [place] [facility] 1.2.840.114 350.1.13.10 4.2.7.2.686 [id number] [facility]
--- NOTE | 2023-10-14 09:37 | EDPHYS ---
Physician Documentation [facility] Name: Vicenta Tomlin Age: 23 yrs Sex: Female : 2000 Arrival Date: 10/14/2023 Time: 09:20 Bed 19 Private MD: ED Physician Lang Mckeon HPI: 10/14 09:37 This 23 yrs old Female presents to ER via Ambulatory with complaints of Flu ec2 Symptoms. 09:37 Patient arrives today for URI signs and symptoms. Patient reports has been having a ec2 couple days of cough and cold symptoms, states that she is having congestion as well as sore throat in the morning when she wakes up, reports that she has bilateral ear discomfort as well as some nausea and diarrhea. Patient reports no significant medical problems, no history of COPD or asthma, denies any abdominal pain or chest pain. Of note patient with sick contact at home with influenza B.. Historical: - Allergies: 09:27 No Known Allergies; ll1 - PMHx: 09:22 Hypothyroidism; ll1 - PSHx: 09:22 buttocks SX; ll1 09:27 "plastic surgery"; ll1 - Immunization history:: Adult Immunizations up to date. - Social history:: Smoking status: Patient denies any tobacco usage or history of. ROS: 09:37 Constitutional: as per hpi ec2 Exam: 09:37 Constitutional: GEN: NAD Head: atraumatic Eyes: EOMI Ears: External ears are ec2 normal. CV: regular rate LUNGS: no respiratory distress, no wheezes, no rales, no rhonchi ABD: non-distended SKIN: no evidence of rashes MSK: no evidence of trauma NEURO: moves all extremities equally Vital Signs: 09:28 BP 120 / 75; Pulse 98; Resp 18; Temp 97.8; Pulse Ox 100% on R/A; Weight 81.19 kg; ll1 Height 5 ft. 6 in. ; Pain 0/10; 09:28 Body Mass Index 28.89 (81.19 kg, 167.64 cm) ll1 09:28 Pain Scale: Adult ll1 MDM: 09:25 Patient medically screened. ec2 09:37 Data reviewed: vital signs. ED course: Patient arrives today for evaluation of cough ec2 and cold symptoms. Examination remarkable for well-appearing nontoxic individual is otherwise in no acute distress with reassuring vital signs. Presentation consistent with viral infection, considered other process such as pneumonia, bacteremia, urinary tract infection, however given the patient's constellation of symptoms, I suspect a viral process, patient also with sick contacts at home with influenza B which ultimately I suspect what she has. I offered her flu and COVID testing, knowing that this would not be management changing and patient declined. Will discharge home. Return precautions given.. Administered Medications: No medications were administered Disposition Summary: 10/14/23 09:36 Discharge Ordered Notes: Location: Home ec2 Condition: Stable ec2 Diagnosis - Viral infection, unspecified ec2 Followup: ec2 - With: Private Physician - When: - Reason: Recheck today's complaints Discharge Instructions: - Discharge Summary Sheet ec2 - Viral Illness, Adult ec2 Forms: - Work release form ec2 - Medication Reconciliation Form ec2 - Thank You Letter ec2 - Antibiotic Education ec2 - Prescription Opioid Use ec2 - Patient Portal Instructions ec2 - Leadership Thank You Letter ec2 Prescriptions: - albuterol sulfate 90 mcg/actuation Inhalation HFA Aerosol Inhaler - inhale 2 puff INHALATION route every 4 hours administer via ventilator; 90 ec2 microgram; Refills: 0, Product Selection Permitted Signatures: Mani Leonard RN RN ll1 Lang Mckeon MD MD ec2 Corrections: (The following items were deleted from the chart) 09:36 09:35 Patient medically screened. ec2 ec2 09:40 09:37 Patient arrives today for URI signs and symptoms. Patient reports has been having ec2 a couple days of cough and cold symptoms, states that she is having congestion as well as sore throat in the morning when she wakes up, reports that she has bilateral ear discomfort as well as some nausea and diarrhea. Patient reports no significant medical problems, no history of COPD or asthma, denies any abdominal pain or chest pain.. ec2
--- NOTE | 2023-10-14 09:37 | ER ---
Nurse's Notes [facility] Name: Vicenta Tomlin Age: 23 yrs Sex: Female : 2000 Arrival Date: 10/14/2023 Time: :20 Bed 19 Private MD: Diagnosis: Viral infection, unspecified Presentation: 10/14 09:28 Chief complaint: Patient states: Cough, congestion, SOB, fatigue, sore throat in the ll1 morning, decreased hearing since Thursday. Coronavirus screen: Vaccine status: Patient reports being unvaccinated. Client denies travel out of the [place] in the last 14 days. congestion, cough unrelated to allergies, diarrhea, difficulty breathing, fatigue, shortness of breath, loss of taste or smell, Client presents with at least one sign or symptom that may indicate coronavirus-19. Standard/surgical mask placed on the client. Ebola Screen: Patient denies travel to an Ebola-affected area in the 21 days before illness onset. Initial Sepsis Screen: Does the patient meet any 2 criteria? No. Patient's initial sepsis screen is negative. Does the patient have a suspected source of infection? Yes: Productive cough/pneumonia. Risk Assessment: Do you want to hurt yourself or someone else? Patient reports no desire to harm self or others. Onset of symptoms was October 12, 2023. 09:28 Method Of Arrival: Ambulatory 1 09:28 Acuity: HUGO 4 ll1 Triage Assessment: 09:30 General: Appears in no apparent distress. Behavior is calm, cooperative, appropriate ll1 for age. General: Reports feeling ill for fatigue for. EENT: Reports nasal congestion pain when swallowing. Respiratory: Reports cough that is. GI: Reports diarrhea. :. Historical: - Allergies: 09:27 No Known Allergies; ll1 - PMHx: 09:22 Hypothyroidism; ll1 - PSHx: 09:22 buttocks SX; ll1 09:27 "plastic surgery"; ll1 - Immunization history:: Adult Immunizations up to date. - Social history:: Smoking status: Patient denies any tobacco usage or history of. Screenin:36 [facility] ED Fall Risk Assessment (Adult) History of falling in the last 3 months, ld1 including since admission No falls in past 3 months (0 pts). Abuse screen: Denies threats or abuse. Denies injuries from another. Nutritional screening: No deficits noted. Tuberculosis screening: No symptoms or risk factors identified. Assessment: 09:36 Reassessment: See triage assessment. ld1 Vital Signs: 09:28 BP 120 / 75; Pulse 98; Resp 18; Temp 97.8; Pulse Ox 100% on R/A; Weight 81.19 kg; ll1 Height 5 ft. 6 in. ; Pain 0/10; 09:28 Body Mass Index 28.89 (81.19 kg, 167.64 cm) ll1 09:28 Pain Scale: Adult [facility] ED Course: 09:21 Patient arrived in ED. im 09:22 Lang Mckeon MD is Attending Physician. ec2 09:22 Arm band placed on Patient placed in an exam room, on a stretcher. ll1 09:30 Triage completed. ll1 09:36 Cammy Ornelas, RN is Primary Nurse. ld1 09:36 Patient has correct armband on for positive identification. Bed in low position. Call ld1 light in reach. Side rails up X2. Pulse ox on. NIBP on. Door closed. Noise minimized. Warm blanket given. 09:36 No provider procedures requiring assistance completed. Patient did not have IV access ld1 during this emergency room visit. Administered Medications: No medications were administered Medication: 09:36 VIS not applicable for this client. ld1 Outcome: :36 Discharge ordered by . ec2 09:42 Discharged to home ambulatory, ld1 09:42 Condition: stable 09:42 Discharge instructions given to patient, Instructed on discharge instructions, follow up and referral plans. medication usage, Demonstrated understanding of instructions, follow-up care, medications, Prescriptions given X 1, 09:42 Patient left the ED. ld1 Signatures: Mani Leonard RN RN 1 Cammy Ornelas RN RN ld1 Daphne Moy Lang Mckeon MD MD ec2
[2023-10-14 09:58] VITALS: BP 120/75; TEMP 97.8; O2SAT 100
== END ==
LOC: ER 09:20
DX: B34.9 Viral infection, unspecified (principal)
CPT/HCPCS: 99283